=== PATIENT | female | born 1990 | race Caucasian/White ===

== ENCOUNTER 2018-09-25 12:33 | Emergency (ER) | payer OTHER ==
[~2018-09-25] VITALS: Ht 157.5 cm; Wt 113.4 kg
[2018-09-25] MEDS ORDERED: METF500 PO (12:49)
[2018-09-25] MEDS ORDERED: Verotin-Gr Cap1 EACH PO (12:50)
[2018-09-25] MEDS ORDERED: PROG100 PO (12:50)
[2018-09-25 13:42] LABS: Source, Urine Clean Catch
[2018-09-25 13:57] LABS: Bilirubin, Urine Neg (Neg); Blood, Urine Neg (Neg); Glucose Qualitative, Urine Neg (Neg); Ketones, Urine 3+ (Neg); Leukocyte Esterase, Urine 1+ (Neg); Nitrite, Urine Neg (Neg); Protein, Urine 2+ (Neg); Urobilinogen, Urine 1+ (Normal)
[2018-09-25 14:00] LABS: BASOPHILS ABSOLUTE AUTO 0.03 K/mm3 (0.00-0.23); BASOPHILS PERCENT AUTO 1 % (0-2); EOSINOPHILS ABSOLUTE AUTO 0.03 K/mm3 (0.00-0.68); EOSINOPHILS PERCENT AUTO 1 % (0-6); Hematocrit 40.3 % (33.0-51.0); Hemoglobin 13.6 g/dL (11.5-16.0); IMMATURE GRAN ABSOLUTE AUTO 0.02 K/mm3 (0.00-0.10); IMMATURE GRAN PERCENT AUTO 0 % (0-1); LYMPHOCYTES ABSOLUTE AUTO 1.34 K/mm3 (0.84-5.20); LYMPHOCYTES PERCENT AUTO 21 % (21-46); MONOCYTES ABSOLUTE AUTO 0.49 K/mm3 (0.16-1.47); MONOCYTES PERCENT AUTO 8 % (4-13); Mean Corpuscular HGB 30.4 pg (26.0-34.0); Mean Corpuscular HGB Conc 33.7 g/dL (31.5-36.5); Mean Corpuscular Volume 90 fL (80-100); Mean Platelet Volume 11.2 fL (9.1-12.4); NEUTROPHILS ABSOLUTE AUTO 4.39 K/mm3 (1.96-9.15); NEUTROPHILS PERCENT AUTO 70 % (41-73); Platelet Count 239 K/mm3 (150-400); RDW Coefficient Variation 13.2 % (11.7-14.2); RDW Standard Deviation 43.8 fL (35.1-46.3); Red Blood Cell Count 4.48 M/mm3 (3.80-5.20)
[2018-09-25 14:18] LABS: Alanine Aminotransfer (ALT/SGP 20 U/L (12-78); Albumin, Blood 4.2 g/dL (3.4-5.0); Albumin/Globulin Ratio 1.4 (0.8-1.8); Alk Phos 68 U/L (50-136); Anion Gap 7 mmol/L (6-16); Aspartate Aminotrans (AST/SGOT 11 U/L (12-37); Bilirubin, Total 1.6 mg/dL (0.1-1.0); Blood Urea Nitrogen 7 mg/dL (8-24); Bun/Creatinine Ratio 11.8 (12.0-20.0); CO2, Blood 24 mmol/L (21-32); Calcium, Blood 8.9 mg/dL (8.5-10.1); Chloride, Blood 108 mmol/L (98-108); Globulin, Blood 3.1 g/dL (2.2-4.0); Glomerular Filtration Rate >60 (60-); Glucose, Blood 87 mg/dL (70-99); Potassium, Blood 3.5 mmol/L (3.5-5.5); Sodium, Blood 139 mmol/L (136-145); Total Protein, Blood 7.3 g/dL (6.4-8.2)
[2018-09-25 14:27] LABS: Appearance, Urine Clear (Clear); Color, Urine Yellow (P-Yellow)
[2018-09-25 14:39] LABS: Bacteria Many /hpf; Red Blood Cells, Urine Rare /hpf (0-2); Squamous Epithelial Cells Many /hpf (Few); White Blood Cells, Urine 0-2 /hpf (0-5)
[2018-09-25 14:40] LABS: Mucus Light (0-Heavy)
[2018-09-25 15:08] LABS: Beta HCG, Quantitative, Serum 27703 mIU/mL (0-3)
== END 2018-09-25 16:00 | disposition home or self-care (01) ==
LOC: ER 12:33
PROVIDERS: Physician Assistant
DX: O26.91 Pregnancy related conditions, unspecified, first trimester (principal); R10.11 Right upper quadrant pain; Z91.013 Allergy to seafood; Z91.030 Bee allergy status; Z79.84 Long term (current) use of oral hypoglycemic drugs
CPT/HCPCS: 36415; 76705; 76801; 76817; 80053; 81001; 83690; 84702; 85025; 87086; 99284-25

== ENCOUNTER 2018-11-03 06:35 | Emergency (ER) | payer OTHER ==
[~2018-11-03] VITALS: Ht 160 cm; Wt 121.6 kg
[~2018-11-03 06:35] MED LIST: METF500 PO; PROG100 PO; Verotin-Gr Cap1 EACH PO
[2018-11-03 09:40] LABS: BASOPHILS ABSOLUTE AUTO 0.02 K/mm3 (0.00-0.23); BASOPHILS PERCENT AUTO 0 % (0-2); EOSINOPHILS ABSOLUTE AUTO 0.01 K/mm3 (0.00-0.68); EOSINOPHILS PERCENT AUTO 0 % (0-6); Hematocrit 41.9 % (33.0-51.0); Hemoglobin 14.1 g/dL (11.5-16.0); IMMATURE GRAN ABSOLUTE AUTO 0.01 K/mm3 (0.00-0.10); IMMATURE GRAN PERCENT AUTO 0 % (0-1); LYMPHOCYTES ABSOLUTE AUTO 0.99 K/mm3 (0.84-5.20); LYMPHOCYTES PERCENT AUTO 8 % (21-46); MONOCYTES ABSOLUTE AUTO 0.56 K/mm3 (0.16-1.47); MONOCYTES PERCENT AUTO 5 % (4-13); Mean Corpuscular HGB 30.5 pg (26.0-34.0); Mean Corpuscular HGB Conc 33.7 g/dL (31.5-36.5); Mean Corpuscular Volume 91 fL (80-100); NEUTROPHILS ABSOLUTE AUTO 10.51 K/mm3 (1.96-9.15); NEUTROPHILS PERCENT AUTO 87 % (41-73); Platelet Count 242 K/mm3 (150-400); RDW Standard Deviation 42.4 fL (35.1-46.3); Red Blood Cell Count 4.62 M/mm3 (3.80-5.20)
[2018-11-03 09:52] LABS: Alanine Aminotransfer (ALT/SGP 17 U/L (12-78); Albumin, Blood 3.9 g/dL (3.4-5.0); Albumin/Globulin Ratio 1.1 (0.8-1.8); Alk Phos 52 U/L (50-136); Anion Gap 8 mmol/L (6-16); Aspartate Aminotrans (AST/SGOT 12 U/L (12-37); Bilirubin, Total 1.6 mg/dL (0.1-1.0); Blood Urea Nitrogen 5 mg/dL (8-24); Bun/Creatinine Ratio 8.5 (12.0-20.0); CO2, Blood 24 mmol/L (21-32); Calcium, Blood 9.1 mg/dL (8.5-10.1); Chloride, Blood 105 mmol/L (98-108); Creatinine, Blood 0.59 mg/dL (0.40-1.00); Globulin, Blood 3.4 g/dL (2.2-4.0); Glomerular Filtration Rate >60 (60-); Glucose, Blood 107 mg/dL (70-99); Potassium, Blood 3.8 mmol/L (3.5-5.5); Sodium, Blood 137 mmol/L (136-145); Total Protein, Blood 7.3 g/dL (6.4-8.2)
[2018-11-03 10:33] LABS: Source, Urine Clean Catch
[2018-11-03 10:37] LABS: Bilirubin, Urine Neg (Neg); Blood, Urine 2+ (Neg); Glucose Qualitative, Urine Neg (Neg); Ketones, Urine 4+ (Neg); Leukocyte Esterase, Urine 1+ (Neg); Nitrite, Urine Neg (Neg); Protein, Urine 1+ (Neg); Specific Gravity, Urine 1.025 (1.003-1.022); Urobilinogen, Urine 1+ (Normal)
[2018-11-03 10:52] LABS: Appearance, Urine Cloudy (Clear); Color, Urine Yellow (P-Yellow)
[2018-11-03 10:54] LABS: Mucus Light ({null, 0-Heavy})
[2018-11-03 10:55] LABS: Bacteria Mod /hpf; Calcium Oxalate Crystals Few /hpf; Red Blood Cells, Urine 0-2 /hpf (0-2); Squamous Epithelial Cells Mod /hpf (Few); White Blood Cells, Urine 0-2 /hpf (0-5)
[2018-11-03] MEDS ORDERED: CEPH500 PO (11:00)
== END 2018-11-03 11:16 | disposition home or self-care (01) ==
LOC: ER 06:35
PROVIDERS: Physician Assistant
DX: O99.611 Diseases of the digestive system complicating pregnancy, first trimester (principal); K59.00 Constipation, unspecified; O99.281 Endocrine, nutritional and metabolic diseases complicating pregnancy, first trimester; E86.0 Dehydration; O21.9 Vomiting of pregnancy, unspecified; Z91.030 Bee allergy status; Z91.013 Allergy to seafood; Z79.899 Other long term (current) drug therapy; Z79.84 Long term (current) use of oral hypoglycemic drugs; Z3A.12 12 weeks gestation of pregnancy
CPT/HCPCS: 36415; 80053; 81001; 83690; 85025; 87077; 87086; 87186; 96374; 99283-25; J2405; J7120

== ENCOUNTER 2018-12-25 16:56 | Emergency (ER) | payer OTHER ==
[~2018-12-25] VITALS: Ht 157.5 cm; Wt 113.4 kg
[~2018-12-25 16:56] MED LIST changes: +CEPH500 PO
[2018-12-25 17:55] LABS: BASOPHILS ABSOLUTE AUTO 0.02 K/mm3 (0.00-0.23); BASOPHILS PERCENT AUTO 0 % (0-2); EOSINOPHILS ABSOLUTE AUTO 0.03 K/mm3 (0.00-0.68); EOSINOPHILS PERCENT AUTO 0 % (0-6); Hematocrit 39.7 % (33.0-51.0); Hemoglobin 13.5 g/dL (11.5-16.0); IMMATURE GRAN ABSOLUTE AUTO 0.05 K/mm3 (0.00-0.10); IMMATURE GRAN PERCENT AUTO 0 % (0-1); LYMPHOCYTES ABSOLUTE AUTO 1.13 K/mm3 (0.84-5.20); LYMPHOCYTES PERCENT AUTO 10 % (21-46); MONOCYTES PERCENT AUTO 5 % (4-13); Mean Corpuscular HGB 30.7 pg (26.0-34.0); Mean Corpuscular Volume 90 fL (80-100); Mean Platelet Volume 11.7 fL (9.1-12.4); NEUTROPHILS ABSOLUTE AUTO 9.51 K/mm3 (1.96-9.15); NEUTROPHILS PERCENT AUTO 84 % (41-73); Platelet Count 269 K/mm3 (150-400); RDW Coefficient Variation 13.1 % (11.7-14.2); RDW Standard Deviation 43.1 fL (35.1-46.3); White Blood Cell Count 11.34 K/mm3 (4.00-11.30)
[2018-12-25 18:15] LABS: Alanine Aminotransfer (ALT/SGP 24 U/L (12-78); Albumin, Blood 3.8 g/dL (3.4-5.0); Alk Phos 63 U/L (50-136); Anion Gap 11 mmol/L (6-16); Aspartate Aminotrans (AST/SGOT 22 U/L (12-37); Bilirubin, Total 0.7 mg/dL (0.1-1.0); Blood Urea Nitrogen 3 mg/dL (8-24); Bun/Creatinine Ratio 7.3 (12.0-20.0); CO2, Blood 23 mmol/L (21-32); Calcium, Blood 9.7 mg/dL (8.5-10.1); Chloride, Blood 103 mmol/L (98-108); Creatinine, Blood 0.41 mg/dL (0.40-1.00); Glomerular Filtration Rate >60 (60-); Glucose, Blood 102 mg/dL (70-99); Potassium, Blood 2.9 mmol/L (3.5-5.5); Sodium, Blood 137 mmol/L (136-145); Total Protein, Blood 7.8 g/dL (6.4-8.2)
[2018-12-25 18:37] LABS: Beta HCG, Quantitative, Serum 34839 mIU/mL (0-3)
[2018-12-25] MEDS ORDERED: AMOX250 PO (20:43)
[2018-12-25] MEDS ORDERED: FAMO8SU PO (22:08)
== END 2018-12-25 22:15 | disposition home or self-care (01) ==
LOC: ER 16:56
PROVIDERS: Physician Assistant
DX: O99.612 Diseases of the digestive system complicating pregnancy, second trimester (principal); K21.9 Gastro-esophageal reflux disease without esophagitis; O99.282 Endocrine, nutritional and metabolic diseases complicating pregnancy, second trimester; E87.6 Hypokalemia; Z91.030 Bee allergy status; Z91.013 Allergy to seafood; Z91.048 Other nonmedicinal substance allergy status; Z79.84 Long term (current) use of oral hypoglycemic drugs; Z79.899 Other long term (current) drug therapy; Z3A.18 18 weeks gestation of pregnancy
CPT/HCPCS: 36415; 80053; 83690; 84702; 85025; 96361; 96374; 99284-25; J2405; J7030

== ENCOUNTER → 2019-03-01 | Outpatient (CLI) | payer OTHER ==
[~2019-03-01] MED LIST changes: +AMOX250 PO; +FAMO8SU PO
[2019-03-01 13:36] LABS: Hematocrit 36.5 % (33.0-51.0); Hemoglobin 12.2 g/dL (11.5-16.0)
== END | disposition home or self-care (01) ==
LOC: LAB 09:29 → LAB SHORT 09:29
PROVIDERS: Obstetrics & Gynecology
DX: Z33.1 Pregnant state, incidental (principal)
CPT/HCPCS: 82950; 85014; 85018

== ENCOUNTER 2019-03-26 17:40 | Observation (INO) | payer OTHER ==
[~2019-03-26] VITALS: Ht 157.5 cm; Wt 109.1 kg
[2019-03-26 18:39] LABS: BASOPHILS ABSOLUTE AUTO 0.03 K/mm3 (0.00-0.23); BASOPHILS PERCENT AUTO 1 % (0-2); EOSINOPHILS ABSOLUTE AUTO 0.03 K/mm3 (0.00-0.68); EOSINOPHILS PERCENT AUTO 1 % (0-6); Hematocrit 37.1 % (33.0-51.0); IMMATURE GRAN ABSOLUTE AUTO 0.05 K/mm3 (0.00-0.10); IMMATURE GRAN PERCENT AUTO 1 % (0-1); LYMPHOCYTES ABSOLUTE AUTO 0.65 K/mm3 (0.84-5.20); LYMPHOCYTES PERCENT AUTO 11 % (21-46); MONOCYTES PERCENT AUTO 8 % (4-13); Mean Corpuscular Volume 89 fL (80-100); Mean Platelet Volume 12.1 fL (9.1-12.4); NEUTROPHILS ABSOLUTE AUTO 4.82 K/mm3 (1.96-9.15); NEUTROPHILS PERCENT AUTO 79 % (41-73); Platelet Count 213 K/mm3 (150-400); RDW Coefficient Variation 13.4 % (11.7-14.2); RDW Standard Deviation 43.2 fL (35.1-46.3); Red Blood Cell Count 4.19 M/mm3 (3.80-5.20); White Blood Cell Count 6.08 K/mm3 (4.00-11.30)
--- NOTE | 2019-03-26 19:17 | NUR ---
HERE WITH SEVERE HEARTBURN AND VOMITING. IV STARTED. MEDICATED WITH PHENERGAN AND PEPSID. AWAITING LABS
[2019-03-26 19:18] LABS: Alanine Aminotransfer (ALT/SGP 20 U/L (12-78); Albumin, Blood 2.2 g/dL (3.4-5.0); Albumin/Globulin Ratio 0.6 (0.8-1.8); Alk Phos 101 U/L (50-136); Anion Gap 12 mmol/L (6-16); Aspartate Aminotrans (AST/SGOT 44 U/L (12-37); Bilirubin, Total 0.7 mg/dL (0.1-1.0); Blood Urea Nitrogen 1 mg/dL (8-24); Bun/Creatinine Ratio 2.2 (12.0-20.0); CO2, Blood 21 mmol/L (21-32); Calcium, Blood 8.5 mg/dL (8.5-10.1); Chloride, Blood 101 mmol/L (98-108); Creatinine, Blood 0.47 mg/dL (0.40-1.00); Globulin, Blood 3.9 g/dL (2.2-4.0); Glomerular Filtration Rate >60 (60-); Glucose, Blood 107 mg/dL (70-99); Potassium, Blood 2.4 mmol/L (3.5-5.5); Sodium, Blood 134 mmol/L (136-145); Total Protein, Blood 6.1 g/dL (6.4-8.2)
[2019-03-27 04:22] LABS: Source, Urine Clean Catch
[2019-03-27 04:27] LABS: Appearance, Urine Clear (Clear); Bilirubin, Urine Neg (Neg); Blood, Urine Neg (Neg); Color, Urine Amber (P-Yellow); Glucose Qualitative, Urine Neg (Neg); Ketones, Urine 4+ (Neg); Leukocyte Esterase, Urine 1+ (Neg); Nitrite, Urine Neg (Neg); Protein, Urine 2+ (Neg); Specific Gravity, Urine 1.015 (1.003-1.022); Urobilinogen, Urine 1+ (Normal); pH, Urine 6.5 (5.0-8.0)
[2019-03-27 04:34] LABS: Bacteria Many /hpf; Mucus Heavy (0-Heavy); Squamous Epithelial Cells Mod /hpf (Few)
[2019-03-27 05:55] LABS: Alanine Aminotransfer (ALT/SGP 19 U/L (12-78); Albumin/Globulin Ratio 0.6 (0.8-1.8); Alk Phos 89 U/L (50-136); Anion Gap 13 mmol/L (6-16); Aspartate Aminotrans (AST/SGOT 40 U/L (12-37); Bilirubin, Total 0.7 mg/dL (0.1-1.0); Blood Urea Nitrogen <1 mg/dL (8-24); Bun/Creatinine Ratio Unable to Calculate (12.0-20.0); CO2, Blood 19 mmol/L (21-32); Calcium, Blood 8.2 mg/dL (8.5-10.1); Chloride, Blood 106 mmol/L (98-108); Creatinine, Blood 0.39 mg/dL (0.40-1.00); Globulin, Blood 3.4 g/dL (2.2-4.0); Glomerular Filtration Rate >60 (60-); Glucose, Blood 104 mg/dL (70-99); Potassium, Blood 2.6 mmol/L (3.5-5.5); Sodium, Blood 138 mmol/L (136-145); Total Protein, Blood 5.4 g/dL (6.4-8.2)
--- NOTE | 2019-03-27 08:38 | NUR ---
STATES LAST VOMIT AT 0715
--- NOTE | 2019-03-27 08:52 | NUR ---
[address] VENTURA BECAUSE ORIGINAL ORDER OF K+ WAS TO HIGH TO RUN TOGETHER, NOW WE ARE DOING K+ 40 meq over 4 hours then BMP THEN CONTINUE NORMAL SALINE WITH 40 meq AT 250CC/HR ACCORDING TO LAB RESULTS
--- NOTE | 2019-03-27 12:12 | NUR ---
nausea medication patient states she is ok for now
[2019-03-27 13:34] LABS: Anion Gap 11 mmol/L (6-16); Blood Urea Nitrogen 1 mg/dL (8-24); Bun/Creatinine Ratio 2.4 (12.0-20.0); CO2, Blood 20 mmol/L (21-32); Chloride, Blood 106 mmol/L (98-108); Creatinine, Blood 0.42 mg/dL (0.40-1.00); Glomerular Filtration Rate >60 (60-); Glucose, Blood 83 mg/dL (70-99); Potassium, Blood 2.8 mmol/L (3.5-5.5); Sodium, Blood 137 mmol/L (136-145)
--- NOTE | 2019-03-27 15:25 | NUR ---
RESTING NO VOMITING SINCE 729 STILL NAUSEA
[2019-03-27 18:46] LABS: Anion Gap 11 mmol/L (6-16); Blood Urea Nitrogen <1 mg/dL (8-24); Bun/Creatinine Ratio Unable to Calculate (12.0-20.0); CO2, Blood 20 mmol/L (21-32); Chloride, Blood 108 mmol/L (98-108); Creatinine, Blood 0.46 mg/dL (0.40-1.00); Glomerular Filtration Rate >60 (60-); Glucose, Blood 81 mg/dL (70-99); Potassium, Blood 2.9 mmol/L (3.5-5.5); Sodium, Blood 139 mmol/L (136-145)
[2019-03-28 06:11] LABS: Anion Gap 9 mmol/L (6-16); Blood Urea Nitrogen <1 mg/dL (8-24); Bun/Creatinine Ratio Unable to Calculate (12.0-20.0); CO2, Blood 22 mmol/L (21-32); Chloride, Blood 110 mmol/L (98-108); Creatinine, Blood 0.37 mg/dL (0.40-1.00); Glomerular Filtration Rate >60 (60-); Glucose, Blood 91 mg/dL (70-99); Potassium, Blood 2.9 mmol/L (3.5-5.5); Sodium, Blood 141 mmol/L (136-145)
--- NOTE | 2019-03-28 11:38 | NUR ---
PER PT FEELING MUCH BETTER - NO NAUSEA DENIES NEED FOR ANY MEDS AT THIS TIME. VISITORS AT SIDE
--- NOTE | 2019-03-28 14:30 | NUR ---
IV OFF PUMP KEEPS ALARMING - HOLDING IVF UNTIL TALK TO DR VENTURA
--- NOTE | 2019-03-28 14:31 | NUR ---
LAB CALLED AND REMINDED LAB DRAW ORDERED TO BE DRAWN AT 1400 - THEY ARE SENDING SOMEONE
[2019-03-28 15:09] LABS: Anion Gap 9 mmol/L (6-16); Blood Urea Nitrogen <1 mg/dL (8-24); Bun/Creatinine Ratio Unable to Calculate (12.0-20.0); CO2, Blood 19 mmol/L (21-32); Calcium, Blood 8.2 mg/dL (8.5-10.1); Chloride, Blood 110 mmol/L (98-108); Creatinine, Blood 0.36 mg/dL (0.40-1.00); Glomerular Filtration Rate >60 (60-); Glucose, Blood 126 mg/dL (70-99); Potassium, Blood 3.3 mmol/L (3.5-5.5); Sodium, Blood 138 mmol/L (136-145)
== END 2019-03-28 16:45 | disposition home or self-care (01) ==
LOC: OBS 17:40 → BC 17:40 → OBS 22:09 → BC 22:10
PROVIDERS: Advanced Practice Midwife; ADMIT Obstetrics & Gynecology
DX: O26.893 Other specified pregnancy related conditions, third trimester (principal); O99.283 Endocrine, nutritional and metabolic diseases complicating pregnancy, third trimester; O99.213 Obesity complicating pregnancy, third trimester; R11.2 Nausea with vomiting, unspecified; E87.6 Hypokalemia; E66.9 Obesity, unspecified; E28.2 Polycystic ovarian syndrome; Z3A.31 31 weeks gestation of pregnancy; Z79.84 Long term (current) use of oral hypoglycemic drugs; Z79.899 Other long term (current) drug therapy; Z91.030 Bee allergy status; Z91.013 Allergy to seafood; Z91.048 Other nonmedicinal substance allergy status
CPT/HCPCS: 36415; 59025; 80048; 80053; 81001; 85025; 87086; 96365; 96366; 96372; 96375; 96376; C9113; G0378; J2405; J2550; J2765; J3480; J7040; J7120; Q0163

== ENCOUNTER 2019-04-08 14:16 | Inpatient (IN) | payer OTHER ==
[~2019-04-08] VITALS: Ht 157.5 cm; Wt 109.8 kg
--- NOTE | 2019-04-08 15:36 | NUR ---
1515 PATIENTS MOTHER SPOKE TO ME STATING, " I WILL SPEAK FOR IGGY". SHE IS DONE WITH THIS AND THE VOMITING, WE WANT THE BABY DELIVERED NOW". I SPOKE WITH THE PATIENT AND HER MOTHER, I EXPLAINED THAT WE DON'T DELIVERY BABIES HERE AT THIS GESTATION AND TYPICALLY [facility] DOESN'T ACCEPT PATIENTS UNLESS THERE IS A MEDICAL REASON. PATIENTS MOTHER AGAIN STATED THAT IGGY, "WANTS TO END THE ". I ASKED IGGY IF THAT MENT SHE WAS THINKING ABOUT HURTING HERSELF OR THE BABY IN ORDER TO STOP BEING AND THE PATIENT SAID "NO".
[2019-04-08 16:03] LABS: Anion Gap 15 mmol/L (6-16); Blood Urea Nitrogen <1 mg/dL (8-24); Bun/Creatinine Ratio Unable to Calculate (12.0-20.0); CO2, Blood 17 mmol/L (21-32); Calcium, Blood 8.9 mg/dL (8.5-10.1); Chloride, Blood 103 mmol/L (98-108); Creatinine, Blood 0.41 mg/dL (0.40-1.00); Glomerular Filtration Rate >60 (60-); Glucose, Blood 104 mg/dL (70-99); Potassium, Blood 2.9 mmol/L (3.5-5.5); Sodium, Blood 135 mmol/L (136-145)
[2019-04-09 06:16] LABS: Anion Gap 12 mmol/L (6-16); Blood Urea Nitrogen <1 mg/dL (8-24); Bun/Creatinine Ratio Unable to Calculate (12.0-20.0); CO2, Blood 17 mmol/L (21-32); Calcium, Blood 7.9 mg/dL (8.5-10.1); Chloride, Blood 112 mmol/L (98-108); Creatinine, Blood 0.41 mg/dL (0.40-1.00); Glomerular Filtration Rate >60 (60-); Glucose, Blood 83 mg/dL (70-99); Potassium, Blood 3.2 mmol/L (3.5-5.5); Sodium, Blood 141 mmol/L (136-145)
--- NOTE | 2019-04-09 08:45 | NUR ---
0715 ASSUMED CARE ASSUMED CARE OF PATIENT SLEEPING QUIETLY. PATIENT'S MOTHER AT BEDSIDE. MOTHER REPORTS PATIENT HAS BEEN ABLE TO GET SOME REST DURING THE NIGHT. MOTHER WILL HAVE PATIENT CALL WHEN SHE IS AWAKE FOR VITAL SIGNS AND MONITORING
--- NOTE | 2019-04-09 09:26 | NUR ---
DR AUDREY VENTURA IN TO SEE PATIENT. PLAN OF CARE DISCUSSED WITH PATIENT AND HER MOTHER
--- NOTE | 2019-04-09 12:19 | NUR ---
PATIENT HAS BEEN SLEEPING WHEN I HAVE CHECKED ON HER. SHE AROUSES TO TOUCH AND FOLLOWS COMMANDS, THEN RETRUNS TO SLEEP. PATIENT'S MOTHER HAS BEEN CONTINOUSLY AT BEDSIDE, THE MOTHER STATES SHE HAS BEEN RESTING AND IT IS GOOD TO SEE HER GET SOME MUCH NEEDED SLEEP
[2019-04-10 05:52] LABS: Anion Gap 16 mmol/L (6-16); Blood Urea Nitrogen <1 mg/dL (8-24); Bun/Creatinine Ratio Unable to Calculate (12.0-20.0); CO2, Blood 16 mmol/L (21-32); Calcium, Blood 8.5 mg/dL (8.5-10.1); Chloride, Blood 106 mmol/L (98-108); Creatinine, Blood 0.38 mg/dL (0.40-1.00); Glomerular Filtration Rate >60 (60-); Glucose, Blood 146 mg/dL (70-99); Potassium, Blood 2.9 mmol/L (3.5-5.5); Sodium, Blood 138 mmol/L (136-145)
--- NOTE | 2019-04-10 17:15 | NUR ---
pt has rested most of the day. has voided dark yellow urine twice this shift. She has eaten 10-20% of her meal trays. Small amount of emesisi following lunch. She has continued with complaint of nausea t/o the day, numerous offers of antiemetics given. Medicated with compazine once per request. Phenergan, MOM, mucinex offered but denied by pt
[2019-04-11 06:06] LABS: Anion Gap 16 mmol/L (6-16); Blood Urea Nitrogen <1 mg/dL (8-24); Bun/Creatinine Ratio Unable to Calculate (12.0-20.0); CO2, Blood 13 mmol/L (21-32); Calcium, Blood 8.4 mg/dL (8.5-10.1); Chloride, Blood 107 mmol/L (98-108); Creatinine, Blood 0.37 mg/dL (0.40-1.00); Glomerular Filtration Rate >60 (60-); Glucose, Blood 161 mg/dL (70-99); Potassium, Blood 3.3 mmol/L (3.5-5.5); Sodium, Blood 136 mmol/L (136-145)
--- NOTE | 2019-04-11 17:00 | NUR ---
PT ATE HALF HER DINNER AND DRANK 2 MILKS PT STATES THIS IS THE BEST I HAVE FELT IN A LONG TIME. PT REQUESTING TO BE DCD HOME DR AUDREY PULIDO
[2019-04-11] MEDS ORDERED: ONDA4ODT MM (17:38)
[2019-04-11] MEDS ORDERED: POTCHL20ER PO (17:38)
[2019-04-11] MEDS ORDERED: PROC5 PO (17:39)
[2019-04-11] MEDS ORDERED: OMEPRAZOLE20 MG PO (17:39)
== END 2019-04-11 17:50 | disposition home or self-care (01) | DRG 833 ==
LOC: OBS 14:16 → BC 14:17 → OBS 17:42 → BC 17:44
PROVIDERS: Advanced Practice Midwife; ADMIT Obstetrics & Gynecology
DX: O21.0 Mild hyperemesis gravidarum (principal); O99.283 Endocrine, nutritional and metabolic diseases complicating pregnancy, third trimester; E87.6 Hypokalemia; Z3A.34 34 weeks gestation of pregnancy
CPT/HCPCS: 36415; 59025; 80048; 96361; 96365; 96366; 96375; 96376; C9113; G0378; J0780; J1720; J2405; J2550; J3480; J7030; J7120

== ENCOUNTER 2019-04-13 18:30 | Observation (INO) | payer OTHER ==
[~2019-04-13] VITALS: Ht 157.5 cm; Wt 109.5 kg
[~2019-04-13 18:30] MED LIST changes: +OMEPRAZOLE20 MG PO; +ONDA4ODT MM; +POTCHL20ER PO; +PROC5 PO
--- NOTE | 2019-04-13 19:19 | NUR ---
Pt here w/complaints of back adn head aches and abdominal pressure that began today. Pt has significant history of n/v, and has been inpatient this . Reports is currently taking compazine, zofran and omperazole at home. Reports she is able to keep down compazine but rarely zofran. Reports has had solid bm today and fewer episodes of vomitting than normal. Has had 2 hospital cups of water but very little food. RN unable to auscultate bowel tones but pt reports positive flatulance today. CNM notified, will give LR and zofran and draw labs.
[2019-04-13 19:37] LABS: Source, Urine Clean Catch
[2019-04-13 19:45] LABS: Bilirubin, Urine Neg (Neg); Blood, Urine Neg (Neg); Glucose Qualitative, Urine Neg (Neg); Ketones, Urine Neg (Neg); Leukocyte Esterase, Urine Neg (Neg); Nitrite, Urine Neg (Neg); Protein, Urine Neg (Neg); Urobilinogen, Urine NORM (Normal)
[2019-04-13 19:46] LABS: Appearance, Urine Clear (Clear); Color, Urine Yellow (P-Yellow)
[2019-04-13 19:53] LABS: BASOPHILS ABSOLUTE AUTO 0.04 K/mm3 (0.00-0.23); BASOPHILS PERCENT AUTO 1 % (0-2); EOSINOPHILS ABSOLUTE AUTO 0.11 K/mm3 (0.00-0.68); EOSINOPHILS PERCENT AUTO 1 % (0-6); Hematocrit 35.2 % (33.0-51.0); Hemoglobin 11.7 g/dL (11.5-16.0); IMMATURE GRAN PERCENT AUTO 5 % (0-1); LYMPHOCYTES ABSOLUTE AUTO 1.67 K/mm3 (0.84-5.20); LYMPHOCYTES PERCENT AUTO 20 % (21-46); MONOCYTES ABSOLUTE AUTO 0.58 K/mm3 (0.16-1.47); MONOCYTES PERCENT AUTO 7 % (4-13); Mean Corpuscular HGB 30.3 pg (26.0-34.0); Mean Corpuscular HGB Conc 33.2 g/dL (31.5-36.5); Mean Corpuscular Volume 91 fL (80-100); NEUTROPHILS ABSOLUTE AUTO 5.61 K/mm3 (1.96-9.15); NEUTROPHILS PERCENT AUTO 67 % (41-73); NRBC ABSOLUTE 0.05 K/mm3 (0.00-0.02); NRBC Auto 0.6 /100 WBC (0.0-0.2); Platelet Count 231 K/mm3 (150-400); RDW Coefficient Variation 13.8 % (11.7-14.2); RDW Standard Deviation 46.4 fL (35.1-46.3); Red Blood Cell Count 3.86 M/mm3 (3.80-5.20); White Blood Cell Count 8.41 K/mm3 (4.00-11.30)
[2019-04-13 20:21] LABS: Alanine Aminotransfer (ALT/SGP 40 U/L (12-78); Albumin/Globulin Ratio 0.6 (0.8-1.8); Alk Phos 131 U/L (50-136); Anion Gap 13 mmol/L (6-16); Aspartate Aminotrans (AST/SGOT 65 U/L (12-37); Bilirubin, Total 0.9 mg/dL (0.1-1.0); Blood Urea Nitrogen <1 mg/dL (8-24); Bun/Creatinine Ratio Unable to Calculate (12.0-20.0); CO2, Blood 20 mmol/L (21-32); Calcium, Blood 8.5 mg/dL (8.5-10.1); Chloride, Blood 104 mmol/L (98-108); Creatinine, Blood 0.43 mg/dL (0.40-1.00); Globulin, Blood 3.5 g/dL (2.2-4.0); Glomerular Filtration Rate >60 (60-); Glucose, Blood 130 mg/dL (70-99); Potassium, Blood 2.6 mmol/L (3.5-5.5); Sodium, Blood 137 mmol/L (136-145); Total Protein, Blood 5.5 g/dL (6.4-8.2)
[2019-04-14 05:47] LABS: Alanine Aminotransfer (ALT/SGP 36 U/L (12-78); Albumin, Blood 1.9 g/dL (3.4-5.0); Albumin/Globulin Ratio 0.6 (0.8-1.8); Alk Phos 127 U/L (50-136); Anion Gap 11 mmol/L (6-16); Aspartate Aminotrans (AST/SGOT 53 U/L (12-37); Blood Urea Nitrogen <1 mg/dL (8-24); Bun/Creatinine Ratio Unable to Calculate (12.0-20.0); CO2, Blood 21 mmol/L (21-32); Calcium, Blood 8.4 mg/dL (8.5-10.1); Chloride, Blood 107 mmol/L (98-108); Creatinine, Blood 0.38 mg/dL (0.40-1.00); Globulin, Blood 3.3 g/dL (2.2-4.0); Glomerular Filtration Rate >60 (60-); Glucose, Blood 115 mg/dL (70-99); Potassium, Blood 2.9 mmol/L (3.5-5.5); Sodium, Blood 139 mmol/L (136-145); Total Protein, Blood 5.2 g/dL (6.4-8.2)
--- NOTE | 2019-04-14 06:42 | NUR ---
PT CONTINUED TO HAVE NAUSEA AND VOMITTING T/O THE SHIFT. STATES THAT NOTHING HELP AND DENIED ANY NEED FOR INTERVENTION.
--- NOTE | 2019-04-14 08:07 | NUR ---
VOMITING NUMEROUS TIMES SPUTUM AND SMALL AMOUNT CLEAR BILE FLUID
--- NOTE | 2019-04-14 10:33 | NUR ---
REPORT TO JESSICA RACHEL
--- NOTE | 2019-04-14 14:14 | NUR ---
POWERGLIDE PLACEMENT BY BLANK MATT RN. POTASSIUM CHLORIDE INFUSION RESTARTED. PT RATED HER SYMPTOMS 10/10 BEFORE ATIVAN 0.25MG GIVEN, SHE NOW SAYS HER SYMPTOMS ARE 7/10 AND ALSO FEELS SOME IMPROVEMENT FROM THE PROTONIX. WHILE IN THE PATIENT'S ROOM I NOTICED SHE WAS HICCUPING FREQUENTLY AND THAT THE HICCUPS WOULD THEN CAUSE HER TO COUGH UP ACID AND SPIT. SHE SAYS THE HICCUPS POTENTIATE THE THICK ACID LEADING TO VOMITING. I CALLED HARINDER DICKINSON TO GIVE HER AN UPDATE ON THE EFFECTIVENESS OF THE ATIVAN AND PROTONIX AND TO SUGGEST THE ADDITION OF BACLOFEN 5-20MG TID FOR THE HICCUPS. HARINDER MARIE, WILL DO FURTHER RESEARCH ON BACLOFEN AND PROTONIX.
--- NOTE | 2019-04-14 14:33 | NUR ---
pt sitting up asking for apple juice
--- NOTE | 2019-04-14 15:20 | NUR ---
T.O. NO NEED FOR TELEMETRY WHILE INFUSING THE POTASSIUM PER HARINDER DICKINSON
[2019-04-14 19:24] LABS: Alanine Aminotransfer (ALT/SGP 32 U/L (12-78); Albumin, Blood 1.9 g/dL (3.4-5.0); Albumin/Globulin Ratio 0.6 (0.8-1.8); Alk Phos 130 U/L (50-136); Anion Gap 10 mmol/L (6-16); Aspartate Aminotrans (AST/SGOT 46 U/L (12-37); Bilirubin, Total 0.9 mg/dL (0.1-1.0); Blood Urea Nitrogen <1 mg/dL (8-24); Bun/Creatinine Ratio Unable to Calculate (12.0-20.0); CO2, Blood 22 mmol/L (21-32); Calcium, Blood 8.1 mg/dL (8.5-10.1); Chloride, Blood 104 mmol/L (98-108); Creatinine, Blood 0.43 mg/dL (0.40-1.00); Globulin, Blood 3.4 g/dL (2.2-4.0); Glomerular Filtration Rate >60 (60-); Glucose, Blood 110 mg/dL (70-99); Potassium, Blood 3.1 mmol/L (3.5-5.5); Sodium, Blood 136 mmol/L (136-145); Total Protein, Blood 5.3 g/dL (6.4-8.2)
--- NOTE | 2019-04-15 07:22 | NUR ---
PT SLEEPING SOUNDLY, DOES NO AWAKE WITH RN ENTRANCE TO ROOM. PT MOM IN ROOM, STATES SHE FELL ASLEEP AFTER ATIVAN. WILL CALL WHEN PT AWAKES FOR LAB DRAW.
[2019-04-15 09:41] LABS: Alanine Aminotransfer (ALT/SGP 33 U/L (12-78); Albumin, Blood 1.7 g/dL (3.4-5.0); Albumin/Globulin Ratio 0.6 (0.8-1.8); Alk Phos 118 U/L (50-136); Anion Gap 9 mmol/L (6-16); Aspartate Aminotrans (AST/SGOT 40 U/L (12-37); Bilirubin, Total 0.8 mg/dL (0.1-1.0); Blood Urea Nitrogen <1 mg/dL (8-24); Bun/Creatinine Ratio Unable to Calculate (12.0-20.0); CO2, Blood 23 mmol/L (21-32); Chloride, Blood 107 mmol/L (98-108); Creatinine, Blood 0.39 mg/dL (0.40-1.00); Globulin, Blood 2.9 g/dL (2.2-4.0); Glomerular Filtration Rate >60 (60-); Glucose, Blood 91 mg/dL (70-99); Potassium, Blood 3.1 mmol/L (3.5-5.5); Sodium, Blood 139 mmol/L (136-145); Total Protein, Blood 4.6 g/dL (6.4-8.2)
--- NOTE | 2019-04-15 10:27 | NUR ---
PT STATES SHE TOOK A FEW BITES OF BREAKFAST, YOGURT BOWL AND CREAM OF WHEAT, AND MOST STAYED DOWN. DECLINES NST AT THIS TIME
--- NOTE | 2019-04-15 11:29 | NUR ---
PT SLEEPING SOUNDLY
--- NOTE | 2019-04-15 15:35 | NUR ---
PT WAS ABLE TO EAT SOME OF HER LUNCH. FEELING BETTER AND THINKING SHE WOULD LIKE TO GO HOME.
--- NOTE | 2019-04-15 15:38 | NUR ---
DR VENTURA AT BEDSIDE DISCUSSING PLAN OF CARE
--- NOTE | 2019-04-15 17:43 | NUR ---
PT DESIRES TO GO HOME. DISCHARGE INSTRUCTIONS REVIEWED AND SIGNED. ALL QUESTIONS ANSWERED. PT DISCHARGED TO HOME
== END 2019-04-15 17:44 | disposition home or self-care (01) ==
LOC: OBS 18:30 → BC 18:30 → OBS 20:58 → BC 20:59
PROVIDERS: Obstetrics & Gynecology; ADMIT Registered Nurse Community Health
DX: O21.0 Mild hyperemesis gravidarum (principal); O99.283 Endocrine, nutritional and metabolic diseases complicating pregnancy, third trimester; O99.213 Obesity complicating pregnancy, third trimester; O99.89 Other specified diseases and conditions complicating pregnancy, childbirth and the puerperium; M54.9 Dorsalgia, unspecified; E28.2 Polycystic ovarian syndrome; E87.6 Hypokalemia; E66.9 Obesity, unspecified; Z3A.34 34 weeks gestation of pregnancy; Z91.013 Allergy to seafood; Z91.038 Other insect allergy status; Z91.048 Other nonmedicinal substance allergy status; Z79.899 Other long term (current) drug therapy
CPT/HCPCS: 36415; 59025; 80053; 81003; 83036; 85025; 96361; 96365; 96366; 96375; 96376; C1751; C9113; G0378; J0780; J2060; J2405; J3480; J7030; J7120

== ENCOUNTER 2019-04-22 00:06 | Day surgery (SDC) | payer OTHER | END 2019-04-22 18:35 | disposition home or self-care (01) | LOC: ATC 00:06 | DX: O21.0 Mild hyperemesis gravidarum (principal); O99.280 Endocrine, nutritional and metabolic diseases complicating pregnancy, unspecified trimester; E28.2 Polycystic ovarian syndrome; Z79.899 Other long term (current) drug therapy; Z91.013 Allergy to seafood; Z91.030 Bee allergy status; Z91.048 Other nonmedicinal substance allergy status | CPT/HCPCS: 96361; 96374; J2405; J7120 ==

== ENCOUNTER 2019-04-25 10:30 | Observation (INO) | payer OTHER ==
[~2019-04-25] VITALS: Ht 157.5 cm; Wt 98.1 kg
[~2019-04-25 10:30] MED LIST changes: -IBUP800 PO; -LORA.5 PO; -PERCOCET; -Percocet 5-3251 EACH PO
[2019-04-25 11:56] LABS: Alanine Aminotransfer (ALT/SGP 38 U/L (12-78); Albumin/Globulin Ratio 0.5 (0.8-1.8); Alk Phos 191 U/L (50-136); Anion Gap 17 mmol/L (6-16); Aspartate Aminotrans (AST/SGOT 64 U/L (12-37); Bilirubin, Total 0.9 mg/dL (0.1-1.0); Blood Urea Nitrogen <1 mg/dL (8-24); Bun/Creatinine Ratio Unable to Calculate (12.0-20.0); CO2, Blood 14 mmol/L (21-32); Calcium, Blood 8.7 mg/dL (8.5-10.1); Chloride, Blood 103 mmol/L (98-108); Creatinine, Blood 0.49 mg/dL (0.40-1.00); Globulin, Blood 3.8 g/dL (2.2-4.0); Glomerular Filtration Rate >60 (60-); Glucose, Blood 142 mg/dL (70-99); Potassium, Blood 2.6 mmol/L (3.5-5.5); Sodium, Blood 134 mmol/L (136-145); Total Protein, Blood 5.8 g/dL (6.4-8.2)
[2019-04-25 12:50] LABS: BASOPHILS ABSOLUTE AUTO 0.03 K/mm3 (0.00-0.23); BASOPHILS PERCENT AUTO 0 % (0-2); EOSINOPHILS ABSOLUTE AUTO 0.05 K/mm3 (0.00-0.68); EOSINOPHILS PERCENT AUTO 1 % (0-6); Hematocrit 37.8 % (33.0-51.0); Hemoglobin 13.1 g/dL (11.5-16.0); IMMATURE GRAN ABSOLUTE AUTO 0.09 K/mm3 (0.00-0.10); IMMATURE GRAN PERCENT AUTO 1 % (0-1); LYMPHOCYTES ABSOLUTE AUTO 1.41 K/mm3 (0.84-5.20); LYMPHOCYTES PERCENT AUTO 21 % (21-46); MONOCYTES ABSOLUTE AUTO 0.63 K/mm3 (0.16-1.47); MONOCYTES PERCENT AUTO 9 % (4-13); Mean Corpuscular HGB 30.1 pg (26.0-34.0); Mean Corpuscular HGB Conc 34.7 g/dL (31.5-36.5); Mean Platelet Volume 11.8 fL (9.1-12.4); NEUTROPHILS ABSOLUTE AUTO 4.64 K/mm3 (1.96-9.15); NEUTROPHILS PERCENT AUTO 68 % (41-73); NRBC ABSOLUTE 0.04 K/mm3 (0.00-0.02); NRBC Auto 0.6 /100 WBC (0.0-0.2); Platelet Count 161 K/mm3 (150-400); RDW Standard Deviation 44.4 fL (35.1-46.3); Red Blood Cell Count 4.35 M/mm3 (3.80-5.20); White Blood Cell Count 6.85 K/mm3 (4.00-11.30)
[2019-04-25 12:51] LABS: Mean Corpuscular Volume 87 fL (80-100)
[2019-04-25 14:46] LABS: Protein, Urine Random 97.8 mg/dL (0.0-11.9); Protein/Creat Ratio, Ur Random 0.6
--- NOTE | 2019-04-25 16:42 | NUR ---
PICC LINE PLACED APPROX 7 DAYS AGO
[2019-04-26 06:36] LABS: BASOPHILS ABSOLUTE AUTO 0.03 K/mm3 (0.00-0.23); BASOPHILS PERCENT AUTO 1 % (0-2); EOSINOPHILS ABSOLUTE AUTO 0.11 K/mm3 (0.00-0.68); EOSINOPHILS PERCENT AUTO 2 % (0-6); Hematocrit 35.9 % (33.0-51.0); Hemoglobin 12.5 g/dL (11.5-16.0); IMMATURE GRAN ABSOLUTE AUTO 0.07 K/mm3 (0.00-0.10); IMMATURE GRAN PERCENT AUTO 1 % (0-1); LYMPHOCYTES ABSOLUTE AUTO 1.25 K/mm3 (0.84-5.20); LYMPHOCYTES PERCENT AUTO 19 % (21-46); MONOCYTES ABSOLUTE AUTO 0.58 K/mm3 (0.16-1.47); MONOCYTES PERCENT AUTO 9 % (4-13); Mean Corpuscular HGB 30.5 pg (26.0-34.0); Mean Corpuscular HGB Conc 34.8 g/dL (31.5-36.5); Mean Corpuscular Volume 88 fL (80-100); Mean Platelet Volume 11.8 fL (9.1-12.4); NEUTROPHILS ABSOLUTE AUTO 4.41 K/mm3 (1.96-9.15); NEUTROPHILS PERCENT AUTO 68 % (41-73); NRBC ABSOLUTE 0.05 K/mm3 (0.00-0.02); NRBC Auto 0.8 /100 WBC (0.0-0.2); Platelet Count 175 K/mm3 (150-400); RDW Coefficient Variation 14.4 % (11.7-14.2); RDW Standard Deviation 45.3 fL (35.1-46.3); White Blood Cell Count 6.45 K/mm3 (4.00-11.30)
[2019-04-26 06:46] LABS: Alanine Aminotransfer (ALT/SGP 37 U/L (12-78); Albumin, Blood 1.9 g/dL (3.4-5.0); Albumin/Globulin Ratio 0.6 (0.8-1.8); Alk Phos 186 U/L (50-136); Amylase, Blood 34 U/L (25-115); Anion Gap 15 mmol/L (6-16); Aspartate Aminotrans (AST/SGOT 56 U/L (12-37); Blood Urea Nitrogen 1 mg/dL (8-24); Bun/Creatinine Ratio 2.3 (12.0-20.0); CO2, Blood 14 mmol/L (21-32); Calcium, Blood 8.6 mg/dL (8.5-10.1); Chloride, Blood 107 mmol/L (98-108); Creatinine, Blood 0.44 mg/dL (0.40-1.00); Globulin, Blood 3.4 g/dL (2.2-4.0); Glomerular Filtration Rate >60 (60-); Glucose, Blood 102 mg/dL (70-99); Potassium, Blood 3.2 mmol/L (3.5-5.5); Sodium, Blood 136 mmol/L (136-145); Total Protein, Blood 5.3 g/dL (6.4-8.2)
--- NOTE | 2019-04-26 07:48 | NUR ---
IN WITH THIS AM, DISCUSSED LABS AND PT'S BP STARTING TO RISE. PLAN TO DO 37 WEEK INDUCTION NEXT MONDAY. PT DOING OK, K LEVEL HIGHER SINCE INFUSIONS LAST NIGHT. POSSIBLE DC HOME TODAY. PLAN TO KEEP ATC INFUSION APPTS FOR NEXT MONDAY. PT HAS OWN MEDS AT HOME. PT SMILING AND HAPPY TO BE INDUCED NEXT WEEK. PT REQUESTED ROOT BEER, GIVEN. PT'S YULI AT SIDE. HE IS EXCITED WELL. OFFERED TO DO NST, PT REQUESTS TO MAKE SOME PHONE CALLS FIRST, WILL CALL WHEN READY TO DO MONITORING. PREVIOUS SHIFT REPORTS PETECHIA ON ARMS LEGS FEET. AND I EXMAINED PT TOGETHER, LOOKS MORE LIKE SCRATCHES, DRY SKIN, PT IS EDEMATOUS, BLANCHES. NOT CONCEREND. PT DENIES AND S/S OF ECLAMPSIA. PT HAS POWER GLIDE, WILL LEAVE IN PLACE AT DC IF SHE DOES INDEED GO HOME TODAY.
--- NOTE | 2019-04-26 08:05 | NUR ---
POWER GLIDE WAS PLACED ON 04-14-19 @ 9715. DAY 12 TODAY.
--- NOTE | 2019-04-26 11:06 | NUR ---
ROUNDING MOM ON BREAST NURSING WELL MOM REPORTED THAT SHE WAS ABLE TO GET A GOOD LATCH WITH OUT THE SHIELD. PT. DENIES NEED FOR FUTHER HELP AT THIS TIME.
--- NOTE | 2019-04-26 11:10 | NUR ---
CHARTEED ON WRONG PT. IN ERROR I CHARTED ON WRONG PT. FOR . UNABLE TO REMOVE NOTE AT THIS TIME.
--- NOTE | 2019-04-26 13:59 | NUR ---
at 1110 PT DC HOME, POWER GLIDE SALINE LOCKED. SEE PAPER CHARTING. NST REACTIVE.
== END 2019-04-26 11:07 | disposition home or self-care (01) ==
LOC: BC 10:30 → OBS 10:30 → BC 13:06 → OBS 13:06 → BC 04-26 11:07
PROVIDERS: ADMIT Obstetrics & Gynecology
DX: O21.1 Hyperemesis gravidarum with metabolic disturbance (principal); O14.03 Mild to moderate pre-eclampsia, third trimester; O99.213 Obesity complicating pregnancy, third trimester; O99.283 Endocrine, nutritional and metabolic diseases complicating pregnancy, third trimester; E66.9 Obesity, unspecified; E28.2 Polycystic ovarian syndrome; Z3A.36 36 weeks gestation of pregnancy; Z79.899 Other long term (current) drug therapy; Z91.013 Allergy to seafood; Z91.030 Bee allergy status; Z91.048 Other nonmedicinal substance allergy status
CPT/HCPCS: 36415; 59025; 80053; 82150; 82570; 83690; 84156; 85025; 96365; 96366; 96375; 96376; C1751; C9113; G0378; J0780; J2060; J2405; J3480; J7120

== ENCOUNTER → 2019-04-25 | Outpatient (CLI) | payer OTHER ==
[~2019-04-25] MED LIST changes: +IBUP800 PO; +LORA.5 PO; +PERCOCET; +Percocet 5-3251 EACH PO
== END | disposition home or self-care (01) ==
LOC: LAB SHORT 09:45 → LAB 09:45
DX: Z34.93 Encounter for supervision of normal pregnancy, unspecified, third trimester (principal)
CPT/HCPCS: 87081; 87653

== ENCOUNTER 2019-05-01 05:08 | Inpatient (IN) | payer OTHER ==
[~2019-05-01] VITALS: Ht 157.5 cm; Wt 99.5 kg
[2019-05-01 05:48] LABS: BASOPHILS ABSOLUTE AUTO 0.03 K/mm3 (0.00-0.23); BASOPHILS PERCENT AUTO 1 % (0-2); EOSINOPHILS ABSOLUTE AUTO 0.04 K/mm3 (0.00-0.68); EOSINOPHILS PERCENT AUTO 1 % (0-6); Hematocrit 39.4 % (33.0-51.0); Hemoglobin 13.8 g/dL (11.5-16.0); IMMATURE GRAN ABSOLUTE AUTO 0.13 K/mm3 (0.00-0.10); IMMATURE GRAN PERCENT AUTO 2 % (0-1); LYMPHOCYTES ABSOLUTE AUTO 1.94 K/mm3 (0.84-5.20); LYMPHOCYTES PERCENT AUTO 29 % (21-46); MONOCYTES ABSOLUTE AUTO 0.49 K/mm3 (0.16-1.47); MONOCYTES PERCENT AUTO 7 % (4-13); Mean Corpuscular HGB 30.1 pg (26.0-34.0); Mean Corpuscular Volume 86 fL (80-100); Mean Platelet Volume 11.8 fL (9.1-12.4); NEUTROPHILS ABSOLUTE AUTO 3.98 K/mm3 (1.96-9.15); NEUTROPHILS PERCENT AUTO 60 % (41-73); NRBC ABSOLUTE 0.06 K/mm3 (0.00-0.02); NRBC Auto 0.9 /100 WBC (0.0-0.2); Platelet Count 193 K/mm3 (150-400); RDW Coefficient Variation 14.1 % (11.7-14.2); RDW Standard Deviation 43.4 fL (35.1-46.3); Red Blood Cell Count 4.59 M/mm3 (3.80-5.20); White Blood Cell Count 6.61 K/mm3 (4.00-11.30)
[2019-05-01] MEDS ORDERED: LORA.5 PO (05:56)
[2019-05-01 07:03] LABS: Alanine Aminotransfer (ALT/SGP 38 U/L (12-78); Albumin, Blood 2.1 g/dL (3.4-5.0); Albumin/Globulin Ratio 0.5 (0.8-1.8); Alk Phos 243 U/L (50-136); Anion Gap 21 mmol/L (6-16); Aspartate Aminotrans (AST/SGOT 57 U/L (12-37); Bilirubin, Total 0.8 mg/dL (0.1-1.0); Blood Urea Nitrogen 3 mg/dL (8-24); CO2, Blood 10 mmol/L (21-32); Calcium, Blood 8.7 mg/dL (8.5-10.1); Chloride, Blood 103 mmol/L (98-108); Globulin, Blood 4.1 g/dL (2.2-4.0); Glomerular Filtration Rate >60 (60-); Glucose, Blood 172 mg/dL (70-99); Potassium, Blood 2.8 mmol/L (3.5-5.5); Sodium, Blood 134 mmol/L (136-145); Total Protein, Blood 6.2 g/dL (6.4-8.2)
[2019-05-01 11:23] LABS: PCO2 Cord - Arterial 46.1 mmHg (40-50); pH Cord - Arterial 7.08 (7.28-7.35)
[2019-05-01 11:24] LABS: PO2 Cord - Arterial > 13 mmHg (16-20)
[2019-05-01 11:25] LABS: PCO2 Cord - Venous 37.4 mmHg (40-50); PO2 Cord - Venous 16.6 mmHg (28-32); pH Umbilical Cord - Venous 7.17 (7.26-7.35)
[2019-05-01 17:39] LABS: BASOPHILS ABSOLUTE AUTO 0.03 K/mm3 (0.00-0.23); BASOPHILS PERCENT AUTO 0 % (0-2); EOSINOPHILS ABSOLUTE AUTO 0.02 K/mm3 (0.00-0.68); EOSINOPHILS PERCENT AUTO 0 % (0-6); Hematocrit 34.1 % (33.0-51.0); Hemoglobin 11.9 g/dL (11.5-16.0); IMMATURE GRAN ABSOLUTE AUTO 0.09 K/mm3 (0.00-0.10); IMMATURE GRAN PERCENT AUTO 1 % (0-1); LYMPHOCYTES ABSOLUTE AUTO 2.08 K/mm3 (0.84-5.20); LYMPHOCYTES PERCENT AUTO 17 % (21-46); MONOCYTES ABSOLUTE AUTO 0.82 K/mm3 (0.16-1.47); MONOCYTES PERCENT AUTO 7 % (4-13); Mean Corpuscular HGB 30.1 pg (26.0-34.0); Mean Corpuscular HGB Conc 34.9 g/dL (31.5-36.5); Mean Corpuscular Volume 86 fL (80-100); Mean Platelet Volume 11.5 fL (9.1-12.4); NEUTROPHILS ABSOLUTE AUTO 9.31 K/mm3 (1.96-9.15); NEUTROPHILS PERCENT AUTO 76 % (41-73); NRBC ABSOLUTE 0.03 K/mm3 (0.00-0.02); NRBC Auto 0.2 /100 WBC (0.0-0.2); Platelet Count 167 K/mm3 (150-400); RDW Coefficient Variation 14.3 % (11.7-14.2); RDW Standard Deviation 44.2 fL (35.1-46.3); Red Blood Cell Count 3.95 M/mm3 (3.80-5.20); White Blood Cell Count 12.35 K/mm3 (4.00-11.30)
[2019-05-01 17:58] LABS: Anion Gap 18 mmol/L (6-16); Blood Urea Nitrogen 2 mg/dL (8-24); Bun/Creatinine Ratio 3.7 (12.0-20.0); CO2, Blood 13 mmol/L (21-32); Calcium, Blood 8.1 mg/dL (8.5-10.1); Chloride, Blood 104 mmol/L (98-108); Creatinine, Blood 0.54 mg/dL (0.40-1.00); Glomerular Filtration Rate >60 (60-); Glucose, Blood 184 mg/dL (70-99); Sodium, Blood 135 mmol/L (136-145)
[2019-05-02 05:48] LABS: Hematocrit 33.4 % (33.0-51.0); Hemoglobin 11.7 g/dL (11.5-16.0); Mean Corpuscular HGB 30.3 pg (26.0-34.0); Mean Corpuscular Volume 87 fL (80-100); Mean Platelet Volume 11.2 fL (9.1-12.4); NRBC ABSOLUTE 0.03 K/mm3 (0.00-0.02); NRBC Auto 0.3 /100 WBC (0.0-0.2); Platelet Count 147 K/mm3 (150-400); RDW Coefficient Variation 14.3 % (11.7-14.2); RDW Standard Deviation 45.1 fL (35.1-46.3); Red Blood Cell Count 3.86 M/mm3 (3.80-5.20); White Blood Cell Count 9.12 K/mm3 (4.00-11.30)
[2019-05-02 06:12] LABS: Alanine Aminotransfer (ALT/SGP 28 U/L (12-78); Albumin, Blood 1.6 g/dL (3.4-5.0); Albumin/Globulin Ratio 0.5 (0.8-1.8); Alk Phos 185 U/L (50-136); Anion Gap 13 mmol/L (6-16); Aspartate Aminotrans (AST/SGOT 31 U/L (12-37); Bilirubin, Total 0.7 mg/dL (0.1-1.0); Blood Urea Nitrogen 2 mg/dL (8-24); Bun/Creatinine Ratio 4.6 (12.0-20.0); CO2, Blood 17 mmol/L (21-32); Calcium, Blood 8.4 mg/dL (8.5-10.1); Chloride, Blood 104 mmol/L (98-108); Creatinine, Blood 0.44 mg/dL (0.40-1.00); Globulin, Blood 3.3 g/dL (2.2-4.0); Glomerular Filtration Rate >60 (60-); Glucose, Blood 224 mg/dL (70-99); Potassium, Blood 2.7 mmol/L (3.5-5.5); Sodium, Blood 134 mmol/L (136-145); Total Protein, Blood 4.9 g/dL (6.4-8.2)
[2019-05-03 05:58] LABS: Alanine Aminotransfer (ALT/SGP 27 U/L (12-78); Albumin, Blood 1.6 g/dL (3.4-5.0); Albumin/Globulin Ratio 0.5 (0.8-1.8); Alk Phos 172 U/L (50-136); Anion Gap 11 mmol/L (6-16); Aspartate Aminotrans (AST/SGOT 34 U/L (12-37); Bilirubin, Total 0.5 mg/dL (0.1-1.0); Blood Urea Nitrogen 5 mg/dL (8-24); Bun/Creatinine Ratio 9.5 (12.0-20.0); CO2, Blood 18 mmol/L (21-32); Calcium, Blood 8.2 mg/dL (8.5-10.1); Chloride, Blood 107 mmol/L (98-108); Creatinine, Blood 0.53 mg/dL (0.40-1.00); Globulin, Blood 3.2 g/dL (2.2-4.0); Glomerular Filtration Rate >60 (60-); Glucose, Blood 138 mg/dL (70-99); Magnesium, Blood 1.5 mg/dL (1.6-2.4); Potassium, Blood 3.9 mmol/L (3.5-5.5); Sodium, Blood 136 mmol/L (136-145); Total Protein, Blood 4.8 g/dL (6.4-8.2)
[2019-05-03] MEDS ORDERED: IBUP800 PO (10:02)
[2019-05-03] MEDS ORDERED: Percocet 5-3251 EACH PO (10:02)
== END 2019-05-03 16:40 | disposition home or self-care (01) | DRG 788 ==
LOC: OBS 05:08 → BC 05:08 → OBS 05:14 → BC 05:15
PROVIDERS: ADMIT Obstetrics & Gynecology
PROC: 10D00Z1 Extraction of Products of Conception, Low, Open Approach (ICD-10-PCS; principal; 2019-05-01 10:45)
DX: O14.04 Mild to moderate pre-eclampsia, complicating childbirth (principal); O76 Abnormality in fetal heart rate and rhythm complicating labor and delivery; O99.824 Streptococcus B carrier state complicating childbirth; O99.284 Endocrine, nutritional and metabolic diseases complicating childbirth; E87.6 Hypokalemia; Z3A.37 37 weeks gestation of pregnancy; Z37.0 Single live birth; Z91.013 Allergy to seafood
CPT/HCPCS: 36415; 80048; 80053; 82803; 82947; 83735; 85025; 85027; 85460; 86850; 86900; 86901; 88307; 97162; 97530; C9113; J0290; J0690; J1815; J1885; J2370; J2405; J2590; J2765; J3010; J3480; J7120

== ENCOUNTER 2019-05-05 03:14 | Inpatient (IN) | payer OTHER ==
[~2019-05-05] VITALS: Ht 157.5 cm; Wt 96.1 kg
[~2019-05-05 03:14] MED LIST changes: +IBUP800 PO; +LORA.5 PO; +Percocet 5-3251 EACH PO
[2019-05-05] MEDS ORDERED: PERCOCET (03:31)
[2019-05-05 04:18] LABS: BASOPHILS ABSOLUTE AUTO 0.02 K/mm3 (0.00-0.23); BASOPHILS PERCENT AUTO 0 % (0-2); EOSINOPHILS ABSOLUTE AUTO 0.03 K/mm3 (0.00-0.68); EOSINOPHILS PERCENT AUTO 1 % (0-6); Hematocrit 31.4 % (33.0-51.0); Hemoglobin 10.8 g/dL (11.5-16.0); IMMATURE GRAN ABSOLUTE AUTO 0.23 K/mm3 (0.00-0.10); IMMATURE GRAN PERCENT AUTO 5 % (0-1); LYMPHOCYTES ABSOLUTE AUTO 1.93 K/mm3 (0.84-5.20); LYMPHOCYTES PERCENT AUTO 40 % (21-46); MONOCYTES ABSOLUTE AUTO 0.29 K/mm3 (0.16-1.47); MONOCYTES PERCENT AUTO 6 % (4-13); Mean Corpuscular HGB 30.3 pg (26.0-34.0); Mean Corpuscular HGB Conc 34.4 g/dL (31.5-36.5); Mean Corpuscular Volume 88 fL (80-100); Mean Platelet Volume 11.2 fL (9.1-12.4); NEUTROPHILS ABSOLUTE AUTO 2.28 K/mm3 (1.96-9.15); NEUTROPHILS PERCENT AUTO 48 % (41-73); NRBC ABSOLUTE 0.02 K/mm3 (0.00-0.02); NRBC Auto 0.4 /100 WBC (0.0-0.2); Platelet Count 136 K/mm3 (150-400); RDW Coefficient Variation 14.4 % (11.7-14.2); RDW Standard Deviation 46.1 fL (35.1-46.3); Red Blood Cell Count 3.57 M/mm3 (3.80-5.20); White Blood Cell Count 4.78 K/mm3 (4.00-11.30)
[2019-05-05 04:37] LABS: Alanine Aminotransfer (ALT/SGP 21 U/L (12-78); Albumin, Blood 1.3 g/dL (3.4-5.0); Albumin/Globulin Ratio 0.5 (0.8-1.8); Alk Phos 149 U/L (50-136); Anion Gap 10 mmol/L (6-16); Aspartate Aminotrans (AST/SGOT 22 U/L (12-37); Bilirubin, Total 0.5 mg/dL (0.1-1.0); Blood Urea Nitrogen 4 mg/dL (8-24); Bun/Creatinine Ratio 11.9 (12.0-20.0); CO2, Blood 18 mmol/L (21-32); Chloride, Blood 114 mmol/L (98-108); Creatinine, Blood 0.34 mg/dL (0.40-1.00); Globulin, Blood 2.7 g/dL (2.2-4.0); Glomerular Filtration Rate >60 (60-); Glucose, Blood 82 mg/dL (70-99); Potassium, Blood 2.5 mmol/L (3.5-5.5); Sodium, Blood 142 mmol/L (136-145)
[2019-05-05 05:21] LABS: Calcium, Blood 6.1 mg/dL (8.5-10.1)
--- NOTE | 2019-05-05 06:56 | NUR ---
PT ADMITTED FROM ER FOR PRE-ECLAMPSIA. PT VERY WITHDRAWN, ONLY ANSWERS QUESTIONS IN A WHISPER IF A VERBAL RESPONSE OTHER THAN YES OR NO REQUIRED.
--- NOTE | 2019-05-05 08:01 | NUR ---
0800 SPOKE WITH PATIENTS FATHER. HE STATES THAT HE IS VERY CONCERNED ABOUT THE RECURRENT, NAUSEA AND VOMITING, BLURRED VISION AND WEAKNESS. HE WOULD LIKE TO SEE THESE ISSUES RESOLVED AND WOULD LIKE TO CALL IN SPECIALISTS IF NECESSARY. HE IS FRUSTRATED WITH IGGY'S ONGOING ILLNESS AND WOULD LIKE TO SEE HER FEELING BETTER
[2019-05-05 12:38] LABS: Alanine Aminotransfer (ALT/SGP 28 U/L (12-78); Albumin, Blood 1.7 g/dL (3.4-5.0); Albumin/Globulin Ratio 0.5 (0.8-1.8); Alk Phos 189 U/L (50-136); Anion Gap 10 mmol/L (6-16); Aspartate Aminotrans (AST/SGOT 42 U/L (12-37); Bilirubin, Total 0.7 mg/dL (0.1-1.0); Blood Urea Nitrogen 6 mg/dL (8-24); CO2, Blood 21 mmol/L (21-32); Calcium, Blood 7.7 mg/dL (8.5-10.1); Chloride, Blood 106 mmol/L (98-108); Free Thyroxine 1.13 ng/dL (0.70-1.60); Globulin, Blood 3.6 g/dL (2.2-4.0); Glomerular Filtration Rate >60 (60-); Glucose, Blood 107 mg/dL (70-99); Potassium, Blood 4.4 mmol/L (3.5-5.5); Sodium, Blood 137 mmol/L (136-145); Total Protein, Blood 5.3 g/dL (6.4-8.2)
[2019-05-05 17:40] LABS: Source, Urine Clean Catch
[2019-05-05 17:48] LABS: Bilirubin, Urine Neg (Neg); Blood, Urine 5+ (Neg); Glucose Qualitative, Urine Neg (Neg); Ketones, Urine 1+ (Neg); Leukocyte Esterase, Urine 3+ (Neg); Nitrite, Urine Neg (Neg); Protein, Urine 3+ (Neg); Urobilinogen, Urine NORM (Normal)
[2019-05-05 18:00] LABS: Appearance, Urine Cloudy (Clear); Color, Urine Yellow (P-Yellow)
[2019-05-05 18:03] LABS: Red Blood Cells, Urine TNTC /hpf (0-2); Squamous Epithelial Cells Few /hpf (Few)
[2019-05-05 18:07] LABS: Bacteria Few /hpf
--- NOTE | 2019-05-05 19:26 | NUR ---
READMIT FOR VOMITING.
--- NOTE | 2019-05-05 19:34 | NUR ---
1000 PATIENT NEARLY NONVERBAL, REFUSES TO EAT ANY SOLID FOOD. TAKING A FEW SIPS OF WATER/TEA. PATIENTS FATHER AGAIN ASKING FOR SOMEONE TO FIGURE OUT THE CAUSE OF THE VOMITING AND WEAKNESS. WAITING HOSPITALIST TO SEE
--- NOTE | 2019-05-05 19:37 | NUR ---
1200 RESTING PATIENT STATES SHE IS TIRED AND WANTS TO REST. WILL LEAVE HER ALONE SO SHE CAN SLEEP PER HER REQUEST
--- NOTE | 2019-05-05 19:38 | NUR ---
1700 ACTIVITY ATTEMPTED TO GET PATIENT OOB TO BATHROOM. PATIENT HAS NO URGE TO VOID BUT WAS WILLING TO TRY. PATIENT BECAME DIZZY AND HAD BLURRED VISION WITH POSITION CHANGE. PATIENT WAS UNABLE TO FLEX HER ANKLES, STATED SHE COULDN'T FEEL HER FEET AND COULDN'T SEE. PATIENT SLIPPED TO THE EDGE OF THE BED AND WOULD HAVE SLID OFF THE MATTRESS EXCEPT FOR THE ASSISTANCE OF STAFF AND FAMILY. RETURNED PATIENT TO BED AND PLACED HER ON A BEDPAN. PATIENT VOIDED, UA SET TO LAB. TO RADIOLOGY FOR CT SCAN. PATIENT BEGAN VOMITING DURING SCAN AND THEY HAD TO END THE SCAN EARLY. RETURNED PATIENT TO ROOM AND TRANSFERED BACK TO BED
--- NOTE | 2019-05-05 20:37 | NUR ---
SBAR WITH DR. UGO ARIZMENDI CALLED TO REQUEST PT RETRY MRI. ATTEMPT THIS AFTERNOON CAUSED PT VOMITTING AND PICTURES REQUIRED WERE NOT ACHIEVED. HE RECOMMENDS TRYING IV BENADRYL AND/OR ATIVAN PRN FOR NAUSEA AND VERTIGO, AND WOULD LIKE HER TO BE MEDICATED BEFORE GOING UP TO MRI NEXT TIME. HE CALLED RADIOLOGY AND THEY SAID THEY WERE GOING TO TRY TO GET A TECH TO COME AND DO THE MRI, BUT IT MIGHT NOT HAPPEN UNTIL THE MORNING. HE ALSO WOULD LIKE THE PT'S NEUROLOGICAL STATUS WATCHED CLOSESLY TO ASSESS WORSENING, AND CONSIDER TRANSFERING PT TO NO OF SYMPTOMS WORSEN. THIS INFOR WAS RELAYED TO THE PT AND TO DR. VENTURA WHO WAS ON UNIT. WILSON VELEZ.
--- NOTE | 2019-05-05 20:40 | NUR ---
PT STATED "I'M DONE" AND "CAN I JUST BE TRANSFERED TO [place]? MY BABY IS THERE." PT'S MOM AT BEDSIDE EXPRESSED CONCERN THAT WE ARE NOT FIGURING OUT WHAT IS WRONG WITH HER. THIS INFO RELAYED TO DR. VENTURA AND REQUESTED SHE TALK TO PATIENT ABOUT THIS. ROSIE, RN
--- NOTE | 2019-05-05 20:42 | NUR ---
REPORT GIVEN TO JESSICA LOZANO AT 2030 AND CARE TRANSFERED. THIS NURSE ROUNDED ON PT AND INFORMED HER OF THE PLAN TO HAVE JESSICA BE HER NURSE FOR THE NIGHT. ROSIE, RN
--- NOTE | 2019-05-05 21:41 | NUR ---
SHIFT ASSESSMENT- PT CONTINUES TO HAVE NYSTAGMUS AND BLURRY VISION, REPORTS INTERMITTENT RUQ STABBING PAIN, NO HEARTBURN AT THIS TIME. PT CONTINUES TO REPORT BEING UNABLE TO FEEL OR MOVE HER LEGS. DR VENTURA AWARE.
--- NOTE | 2019-05-05 21:43 | NUR ---
PLAN OF CARE DISCUSSED WITH PT BY DR VENTURA, PT CONTEMPLATED POSSIBLE AMA DISCHARGE TONIGHT TO GO TO [facility], HAS DECIDED AGAINST THAT AT THIS TIME AND IS WILLING TO TRY A CT SCAN INSTEAD.
--- NOTE | 2019-05-06 03:30 | NUR ---
ASSUMED CARE OF PT. REPORT RECEIVED FROM WILSON LOPEZ.
--- NOTE | 2019-05-06 03:45 | NUR ---
PT STATES SHE FEELS DISORIENTED AND HER MOTHER REPORTS THAT SHE IS CONFUSED. THE PT SPEAKS IN A WHISPER AND STATES THAT SHE THOUGHT SHE WAS VOMITING ALL NIGHT AND NAUSEATED, BUT SAYS HER STOMACH FEELS FINE. THIS IS AFTER ASKING FOR MEDICATION FOR NAUSEA JUST A FEW MINUTES PRIOR. PT'S MOTHER REPORTS THAT SHE SOMETIMES GETS CONFUSED WHEN SHE TAKES BENADRYL.
--- NOTE | 2019-05-06 04:45 | NUR ---
PT IS REPOSITIONED AND CAN MOVE HER FEET WHEN ASKED.
--- NOTE | 2019-05-06 04:45 | NUR ---
PT STATES THAT SHE NO LONGER FEELS DISORIENTED. SHE THINKS SHE JUST HAD A VIVID DREAM AND WOKE UP CONFUSED. SHE DENIES NAUSEA AT THIS TIME AND REUSES BENADRYL.
[2019-05-06 05:12] LABS: BASOPHILS ABSOLUTE AUTO 0.03 K/mm3 (0.00-0.23); BASOPHILS PERCENT AUTO 1 % (0-2); EOSINOPHILS ABSOLUTE AUTO 0.06 K/mm3 (0.00-0.68); EOSINOPHILS PERCENT AUTO 1 % (0-6); Hematocrit 30.5 % (33.0-51.0); Hemoglobin 10.4 g/dL (11.5-16.0); IMMATURE GRAN ABSOLUTE AUTO 0.24 K/mm3 (0.00-0.10); IMMATURE GRAN PERCENT AUTO 4 % (0-1); LYMPHOCYTES ABSOLUTE AUTO 2.15 K/mm3 (0.84-5.20); LYMPHOCYTES PERCENT AUTO 40 % (21-46); MONOCYTES ABSOLUTE AUTO 0.64 K/mm3 (0.16-1.47); MONOCYTES PERCENT AUTO 12 % (4-13); Mean Corpuscular HGB Conc 34.1 g/dL (31.5-36.5); Mean Corpuscular Volume 88 fL (80-100); Mean Platelet Volume 11.1 fL (9.1-12.4); NEUTROPHILS ABSOLUTE AUTO 2.31 K/mm3 (1.96-9.15); NEUTROPHILS PERCENT AUTO 43 % (41-73); Platelet Count 132 K/mm3 (150-400); RDW Coefficient Variation 14.6 % (11.7-14.2); RDW Standard Deviation 46.1 fL (35.1-46.3); Red Blood Cell Count 3.47 M/mm3 (3.80-5.20); White Blood Cell Count 5.43 K/mm3 (4.00-11.30)
[2019-05-06 05:33] LABS: Alanine Aminotransfer (ALT/SGP 27 U/L (12-78); Albumin, Blood 1.6 g/dL (3.4-5.0); Albumin/Globulin Ratio 0.5 (0.8-1.8); Alk Phos 179 U/L (50-136); Anion Gap 10 mmol/L (6-16); Aspartate Aminotrans (AST/SGOT 46 U/L (12-37); Bilirubin, Total 0.9 mg/dL (0.1-1.0); Blood Urea Nitrogen 7 mg/dL (8-24); Bun/Creatinine Ratio 17.2 (12.0-20.0); CO2, Blood 22 mmol/L (21-32); Calcium, Blood 7.7 mg/dL (8.5-10.1); Chloride, Blood 106 mmol/L (98-108); Creatinine, Blood 0.41 mg/dL (0.40-1.00); Globulin, Blood 3.2 g/dL (2.2-4.0); Glomerular Filtration Rate >60 (60-); Glucose, Blood 105 mg/dL (70-99); Potassium, Blood 3.4 mmol/L (3.5-5.5); Sodium, Blood 138 mmol/L (136-145); Total Protein, Blood 4.8 g/dL (6.4-8.2)
[2019-05-06 05:34] LABS: Magnesium, Blood 1.9 mg/dL (1.6-2.4)
[2019-05-06 05:35] LABS: Albumin, Blood 1.6 g/dL (3.4-5.0); Anion Gap 9 mmol/L (6-16); Blood Urea Nitrogen 8 mg/dL (8-24); Bun/Creatinine Ratio 19.5 (12.0-20.0); CO2, Blood 22 mmol/L (21-32); Calcium, Blood 7.6 mg/dL (8.5-10.1); Chloride, Blood 106 mmol/L (98-108); Creatinine, Blood 0.41 mg/dL (0.40-1.00); Glomerular Filtration Rate >60 (60-); Glucose, Blood 105 mg/dL (70-99); Phosphorus, Blood 2.2 mg/dL (2.5-4.9); Potassium, Blood 3.4 mmol/L (3.5-5.5); Sodium, Blood 137 mmol/L (136-145)
--- NOTE | 2019-05-06 07:15 | NUR ---
MRI RN ASKED PT IF SHE WAS OK WITH HAVING ANOTHER MRI DONE, IMAGING WAS READY TO COME TO GET HER. PT AGREED TO HAVE MRI DONE.
--- NOTE | 2019-05-06 07:30 | NUR ---
IMAGINING IMAGING HERE WITH JHONNY TO TAKE PT TO MRI. PT REFUSED MRI. NISHI Pierre AND TEDDY FROM IMAGINING IN ROOM.
--- NOTE | 2019-05-06 07:47 | NUR ---
SHIFT ASSESSMENT PT C/O BLURRINESS IN EYES, ONLY BEING ABLE TO MOVE TOES BUT HAS FEELING IN ALL EXTREMNTIES. PT MOVES UPPER EXTREMNITIES. PT HAD 2+ BLE EDEMA, NO CLONUS. FAMILY AT BEDSIDE.
--- NOTE | 2019-05-06 07:50 | NUR ---
BREAKFAST PT EATING BREAKFAST, NO SWALLOWING OR CHEWING ISSUES.
--- NOTE | 2019-05-06 08:26 | NUR ---
GREEN PHLEGM PT MOTHER EXPLAINED THAT PT HAS HAD STREAKS OF GREEN PHLEGM WHEN BLOWING NOSE FOR MONTHS. PT ATE 40 % OF YOGURT WITH FRUIT AND 10% OF KELLOGS FLAKES WITH MILK.
--- NOTE | 2019-05-06 08:32 | NUR ---
POSITION PT IN SEMI FOWLERS POSITION
--- NOTE | 2019-05-06 10:00 | NUR ---
PT POSITION CHANGED
--- NOTE | 2019-05-06 12:00 | NUR ---
PT POSITION PT POSITIONED RIGHT TILT WITH PILLOWS UNDER FEET AND BEHIND BACK. PT SITTING UP SEMI FOWLERS, REPOSITIONED NISHI Pierre AND LESLIE Diehl
--- NOTE | 2019-05-06 14:13 | NUR ---
WEIGHT PT STATES UNABLE TO STAND FOR DAILY WEIGHT, PT FEELING A LITTLE NAUSEAUS BUT REFUSES ZOFRAN,UNABLE TO OBTAIN WEIGHT FROM BED BECAUSE PT UNABLE TO LAY BACK. RN WILL REATTEMPT DAILY WEIGHT.
--- NOTE | 2019-05-06 15:32 | NUR ---
PT POSITION LEFT TILT WITH PILLOWS UNDER FEET AND BACK, SEMI FOWLERS
--- NOTE | 2019-05-06 15:34 | NUR ---
PT WEIGHT PT WEIGHT VIA BED WEIGH IS 210.6 LBS. RN REPOSITIONED WITH ALESHA Diehl
--- NOTE | 2019-05-06 16:44 | NUR ---
NEW GOWN PT HAD SCANT EMESIS ON GOWN. NEW GOWN ON PT.
--- NOTE | 2019-05-06 17:10 | NUR ---
DR. VENTURA IN ROOM WITH PT UPDATING PT ON CARE PLAN. PT ANOTHER MRI.
--- NOTE | 2019-05-06 18:00 | NUR ---
DR. FISHER IN ROOM CONSULTING PT.
--- NOTE | 2019-05-06 18:15 | NUR ---
PT STATES FEELING FRUSTRATED, PT STATES WANTING TO BE WITH HER NB AT [facility]. RN PROVIDED POSTIVE SUPPORT TO PT.
--- NOTE | 2019-05-06 18:30 | NUR ---
CT SCAN PT STATES THAT SHE IS READY FOR CT SCAN. IMAGING CALLED AND WILL BE ON THEIR WAY.
--- NOTE | 2019-05-06 18:52 | NUR ---
IMAGING IMAGING HERE TO TAKE PT TO GET CT SCAN. PT TRANSFERRED VIA SLIDER SHEET TO THE [facility] WITH 4 PERSON ASSIST. PT TOLERATED WELL. NEW LINENS ON PT BED.
--- NOTE | 2019-05-07 05:48 | NUR ---
REFUSAL OF MRI DISCUSSED PT REASONING FOR REFUSING THE MRI. PT STATES THAT SHE IS TOO AFRAID TO GET CACK IN THE MRI MACHINE. THIS RN RENIFORCED THAT SHE COULD BE PRE-MEDICATED FOR PRIOR TO THE TEST. PT DECLINES WANTING ANY MEDICATIONS BECAUSE IT MAKE HER FEEL "LOOPY" AND "OUT OF IT." DISCUSSED STATES THAT SHE THINKS IF SHE CAN JUST START WALKING AGIAN THAT SHE WILL BE STRONGER AND GET BETTER. PT ALSO REPORTS THAT SHE IS NOW ABLEL TO FEEL HER FEET AND HER VISION IS IMPROVING. WHEN ASKED IF SHE WAS ABLE TO MOVE HER FEET IN BED PT STATED THAT SHE CAN'T DUE TO HER BOOTS AND PAS. BOTH BOOT AND PAS REMOVED. PT UNABLE TO FLEX FOOT AT ANKLE. CAN MOVE KNEE SLIGHTLY. CONTINUES TO BE UNABLE TO MOVE LEG OFF OF BED. PLAN TO REPLACE BOOTS AND PAS AFTER A 15-30 MINUTE BREAK. PT WISHING TO CONTINUE TO TRY AND WINDOW SHADE INSTALLER HER FEET MORE, HER FATHER IS ASSISTING PT TO FLEX ANKLE. PT AWARE TO NOT ATTEMPT GETTING OUT OF BED WITH OUT STAFF ASSISTANCE.
[2019-05-07 06:47] LABS: Albumin, Blood 1.8 g/dL (3.4-5.0); Anion Gap 9 mmol/L (6-16); Blood Urea Nitrogen 6 mg/dL (8-24); Bun/Creatinine Ratio 14.4 (12.0-20.0); CO2, Blood 23 mmol/L (21-32); Calcium, Blood 8.2 mg/dL (8.5-10.1); Chloride, Blood 105 mmol/L (98-108); Creatinine, Blood 0.42 mg/dL (0.40-1.00); Glomerular Filtration Rate >60 (60-); Glucose, Blood 94 mg/dL (70-99); Magnesium, Blood 1.7 mg/dL (1.6-2.4); Phosphorus, Blood 2.6 mg/dL (2.5-4.9); Potassium, Blood 3.3 mmol/L (3.5-5.5); Sodium, Blood 137 mmol/L (136-145)
--- NOTE | 2019-05-07 07:45 | NUR ---
PT ASSESSMENT PT WAS SITTING UP ON SIDE OF BED WITH HER FATHERS ASSIST I DID A FULL ASSESMENT AND NOTED TOTAL RT SIDE WEAKNESS WITH FOOT DROP AUTO PORTER WERE EQUAL MAYBE SLIGHT WEAKNESS ON RT SIDE. PT WAS HAVING A DIFFICULT TIME HOLDING HERSELF UP RIGHT WITHOUT SWAYING. PT IN TEARS STATES " JUST WAN TO BE TRANSFERED/OR DCD TO BE WITH MY BABY, I DONT KNOW WHATS WRONG WITH ME I COULD WALK A FEW DAYS AGO ANOW NOTHING". I TOLD PT PT WILL BE DOWN IN AN HOUR FOR ASSESSMENT AND SHE SAID SHE IS READY TO START TTRYING TO WALK SHE WANTS DISCHARGED TODAY
--- NOTE | 2019-05-07 08:30 | NUR ---
0830 PT/OT CONSULT PT AND OT HERE TO EVALUATE PT. [id number] PT STATES PUTTING IN REFERRAL FOR INPATIENT TRATMENT OT DOING SAME WELL DR VENTURA UPDATED AND I WAS TOLD DR FISHER WOULD ROUND AND CONSULT TREATMENT
--- NOTE | 2019-05-07 14:53 | NUR ---
Dr pineda in room
--- NOTE | 2019-05-07 15:29 | NUR ---
DR FISHER DISCUSSING CARE AND IMPORTANCE OF STAYING FOR LAB WORK AND MONITORING PT INSISTANT ON GETTING TO [facility] TO BE WITH BABY, EXPLAINED TO PT THAT AT THIS TIME WE NEED TO MONITOR AND COLLECT LABS BUT YOU ALWAYS HAS OPTION TO LEAVE AMA. PT AGREEING TO STAY FOR TESTS BUT PRETTY ADAMENT ON GOING [place] TO [facility] TOMORROW. PT ADMITTS SHE IS VERY DEPRESSED AND JUST NEEDS TO GET TO HER BABY. DR FISHER COMPLETED FULL ASSESSMENT AND PT SEEMS TO BE GETTING STRONGER. PT FEELING OK ABOUT CONVERSATION WITH DR FISHER
--- NOTE | 2019-05-07 16:06 | NUR ---
PROGRESS PT HAD A FEW QUESTIONS BUT ALL IN ALL IS HAPPY WITH DR FISHER TREATMENT PLAN PT IS FACETIMING BABY WHICH IS HELPING WITH HER DEPRESSION FROM NB SEPERATION
--- NOTE | 2019-05-07 16:30 | NUR ---
KINZA Hart, RN TISSUE RECOVERY TECHNICIAN HERE TO DISCUSS WITH PT AND FAMILY OPTIONS REGARDING PT/OT THERAPY AND DIFFERENT PLACES SHE CAN RECIEVE THESE SERVICES. PT AND FAMILY UNHAPPY AND FRUSTRATED THAT ONLY OPTIONS ARE 1. GO TO [facility] OR [facility] FOR REHAB 2. GO TO [facility] IN [place] AND RECIEVE PT/OT 3. GO HOME AND HAVE PT/OT THERAPISTS WORK IN HOME WITH HER ONCE-TWICE A WEEK 4. BE ACCEPTED TO AN INTENSIVE REHAB FACILITY OUTSIDE OF THE AREA ([place]/[facility]). PT DECLINES THAT RN TISSUE RECOVERY TECHNICIAN SENDS UP REFERRAL PACKET TO INTENSIVE REHAB CENTER. PT AND FAMILY REQUESTING THEY HAVE MORE TIME TO THINK ABOUT THEIR OPTIONS. RN TISSUE RECOVERY TECHNICIAN TO COME BACK AT 10AM AND TALK TO PT AND FAMILY.
--- NOTE | 2019-05-08 02:00 | NUR ---
PATIENT VERBALIZED DESIRE TO WORK WITH PT TODAY IN HOPES OF IMPORVING HER MOBILITY WILL EXPIDITE HER DISCHARGE TO HOME. 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 REMINDED PATIENT THAT SHE MUST VERBALIZE HER FEARS, GOALS TO REGAIN HER ABILITY TO AMBULATE WELL HER STRONG MOTIVATION TO DO SO WHEN PHYSICIAN ROUNDING OCCURS. PATIENT VERBALIZES UNDERSTANDING.
[2019-05-08 06:18] LABS: Hematocrit 29.8 % (33.0-51.0); Hemoglobin 9.9 g/dL (11.5-16.0); Mean Corpuscular HGB Conc 33.2 g/dL (31.5-36.5); Mean Corpuscular Volume 90 fL (80-100); Mean Platelet Volume 11.1 fL (9.1-12.4); NRBC ABSOLUTE 0.03 K/mm3 (0.00-0.02); NRBC Auto 0.6 /100 WBC (0.0-0.2); Platelet Count 117 K/mm3 (150-400); RDW Coefficient Variation 14.4 % (11.7-14.2); RDW Standard Deviation 46.9 fL (35.1-46.3); White Blood Cell Count 4.85 K/mm3 (4.00-11.30)
[2019-05-08 06:33] LABS: Albumin, Blood 1.9 g/dL (3.4-5.0); Anion Gap 8 mmol/L (6-16); Blood Urea Nitrogen 9 mg/dL (8-24); Bun/Creatinine Ratio 24.3 (12.0-20.0); C-REACTIVE PROTEIN, EXT RANGE 0.692 mg/dL (0.000-0.300); CO2, Blood 24 mmol/L (21-32); Calcium, Blood 8.2 mg/dL (8.5-10.1); Chloride, Blood 107 mmol/L (98-108); Creatinine, Blood 0.37 mg/dL (0.40-1.00); Glomerular Filtration Rate >60 (60-); Glucose, Blood 102 mg/dL (70-99); Magnesium, Blood 1.7 mg/dL (1.6-2.4); Phosphorus, Blood 3.3 mg/dL (2.5-4.9); Potassium, Blood 3.7 mmol/L (3.5-5.5); Sodium, Blood 139 mmol/L (136-145)
[2019-05-08 06:36] LABS: CPK Creatine Kinase 85 U/L (26-193)
[2019-05-08 06:37] LABS: Creatine Kinase MB <1.0 ng/mL (0.0-3.6); Creatine Kinase MB Index Unable to Calculate (0.0-4.0)
[2019-05-08 07:16] LABS: BAND PERCENT MAN 1 % (0-8); BASOPHILS ABSOLUTE MAN 0.04 K/mm3 (0.00-0.23); BASOPHILS PERCENT MAN 1 % (0-2); EOSINOPHILS PERCENT MAN 0 % (0-6); LYMPHOCYTES ABSOLUTE MAN 2.08 K/mm3 (0.84-5.20); LYMPHOCYTES PERCENT MAN 43 % (21-46); METAMYELOCYTE ABSOLUTE MAN 0.14 K/mm3 (0.00-0.00); METAMYELOCYTE PERCENT MAN 3 % (0-0); MONOCYTES ABSOLUTE MAN 0.38 K/mm3 (0.16-1.47); MONOCYTES PERCENT MAN 8 % (4-13); MYELOCYTE ABSOLUTE MAN 0.24 K/mm3 (0.00-0.00); MYELOCYTE PERCENT MAN 5 % (0-0); NEUTROPHILS ABSOLUTE MAN 1.94 K/mm3 (1.96-9.15); SEG NEUTROPHILS PERCENT MAN 39 % (41-73); TOTAL CELLS COUNTED 100
--- NOTE | 2019-05-08 07:59 | NUR ---
DR VENTURA HERE IN ROOM MY PT ASSESSMENT IS UNCHANGED FROM YESTERDAY AY 1530 PT CONT TO HAVE MORE WEAKNESS TO LEFT SIDE THEN RIGHT CONT BILAT FOOT DROP PT HAS SPEECH ISSUES WELL. PT ALSO INFORMED ME SHE HAS NOT HAD A BM FOR 7 DAYS AND THAT SHE ALSO FORGOT TO MENTION SHE HAS AN BREAST IMPLANT IN LEFT SIDE X 10 YEARS THAT IS FILLED WITH SILICONE THAT SHE WAS TOLD WOULD NEED TO BE REPLACED AT 10 YR LUPILLO. VSS PT STILL LISTING TO RT SIDE WITH RT FACIAL SWELLING AND NUMBNESS RT HAND HAS MORE CORDINATION THEN LEFT HAND. STRENGHTH SEEMS FAIRLY EQUAL STUDENT WORKER SLIGHT DIFFERENCE WITH LEFT HAND PT ALSO CANNOT BED KNEES BILAT. PT CAN RAISE LEGS OFF BED JUST WEAK PT STILL AT THIS TIME DOES NOT FEEL LIKE SHE CAN DO AN MRI BUT IS THINKING ABOUT IT
--- NOTE | 2019-05-08 10:40 | NUR ---
RN TIRE RECAPPER HERE WITH PATIENT DISCUSSING IN PATIENT TREATMENT AND REHAB. PT AND FAMILY CHOOSING TO BRING HOME HEALTH IN AND TO BE DCD HOME. PATIENT STATES I JUST WANT TO BE WITH MY BABY
--- NOTE | 2019-05-08 11:54 | NUR ---
PT AND OT THERAPY PT AND OT WORKING WITH PT NOW
--- NOTE | 2019-05-08 14:35 | NUR ---
DR REDDY OFFICE CALLED BACK AND STATES THEY ARE NOT ACCEPTING ANY REFERRALS OR CONSULTS TO HOSPITAL.
--- NOTE | 2019-05-08 16:15 | NUR ---
UPDATE PT FAMILY CALLED STATES IGGY CAN FEEL HER FEET THEY ARE BURNING, I WAS EXAMINING IGGY SHE WAS SITTING UP STRAIGHT NO LISTING, TALKING CLEARER AND HAD MORE STRENGTH BILAT IN LEGS AND FEET PT COULD FEEL MY TOUCH ON BOTH FEET WHERE BEFORE THERE WAS NO FEELING PT FAMILY STATES SHE ALL OF A SUDDEN STARTED TALKING CLEARER AFTER SHE COMPLAINED OF BURNING AND PAIN IN BILAT FEET AND LEGS
--- NOTE | 2019-05-08 17:18 | NUR ---
PT TRANSFERED TO ROOM 209 REPORT TO DWAIN RACHEL
--- NOTE | 2019-05-08 19:27 | NUR ---
TRANSFER: REPORT RECIEVED FROM FBP RN. PT TO UNIT AT ABOUT 1730. UPON ASSESSMENT PT IS A/O. SURGICAL SITE WNL. CONTINUES TO HAVE ENABLITY TO MOVE LEGS, ONLY WIGGLES TOES. REPORTS "BURNING" TO ANKLES AND FEET. PULSES PALPABLE. R ARM IS STRONGER THAN LEFT. PUPILS ARE WNL. PT TURNED AND HELPED ONTO BEDPAN. DENIES PAIN, CALL LIGHT IN REACH, WILL CTM.
--- NOTE | 2019-05-09 04:32 | NUR ---
SHIFT SUMMARY ALERT AND ORIENTED. PATIENT ANSWERING IN SHORT RESPONSES, BUT ANSWERING APPROPRIATLY. BILATERAL DEFICIT MORE PRONOUNCED ON THE RIGHT SIDE. PT AND FAMILY REPORTED SOME DIFFICULTY WITH EATING DURING THE EARLY PART OF THE SHIFT. PATIENT HAS BEEN CALLING APPROPRIATLY FOR BED HUTCHINSON, HAD ONE INC VOID AT BEGINNNIG OF SHIFT. REPORTS NO ISSUES WITH VISION. PATIENT LEANING TO THE RIGHT HEAVILY DURING SHIFT, MULTIPLE PILLOWS IN PLACE TO HELP MAINTAIN BODY POSITION. DENIES PAIN DURING SHIFT, SAYS BURNING IN FEET IS GONE. DENIED NAUSEA. SMALL AMOUNT RED VAGINAL DRAINAGE.
[2019-05-09 06:34] LABS: Hematocrit 28.7 % (33.0-51.0); Hemoglobin 9.3 g/dL (11.5-16.0); Mean Corpuscular HGB 29.7 pg (26.0-34.0); Mean Corpuscular HGB Conc 32.4 g/dL (31.5-36.5); Mean Corpuscular Volume 92 fL (80-100); Mean Platelet Volume 10.9 fL (9.1-12.4); NRBC ABSOLUTE 0.03 K/mm3 (0.00-0.02); NRBC Auto 0.7 /100 WBC (0.0-0.2); Platelet Count 121 K/mm3 (150-400); RDW Coefficient Variation 14.5 % (11.7-14.2); RDW Standard Deviation 48.1 fL (35.1-46.3); Red Blood Cell Count 3.13 M/mm3 (3.80-5.20); White Blood Cell Count 4.61 K/mm3 (4.00-11.30)
[2019-05-09 07:00] LABS: BAND PERCENT MAN 4 % (0-8); BASOPHILS PERCENT MAN 0 % (0-2); EOSINOPHILS PERCENT MAN 0 % (0-6); LYMPHOCYTES ABSOLUTE MAN 1.75 K/mm3 (0.84-5.20); LYMPHOCYTES PERCENT MAN 38 % (21-46); METAMYELOCYTE ABSOLUTE MAN 0.27 K/mm3 (0.00-0.00); METAMYELOCYTE PERCENT MAN 6 % (0-0); MONOCYTES ABSOLUTE MAN 0.55 K/mm3 (0.16-1.47); MONOCYTES PERCENT MAN 12 % (4-13); MYELOCYTE ABSOLUTE MAN 0.04 K/mm3 (0.00-0.00); MYELOCYTE PERCENT MAN 1 % (0-0); NEUTROPHILS ABSOLUTE MAN 1.98 K/mm3 (1.96-9.15); SEG NEUTROPHILS PERCENT MAN 39 % (41-73); TOTAL CELLS COUNTED 100
[2019-05-09 11:03] LABS: Alanine Aminotransfer (ALT/SGP 59 U/L (12-78); Albumin/Globulin Ratio 0.6 (0.8-1.8); Alk Phos 154 U/L (50-136); Anion Gap 4 mmol/L (6-16); Aspartate Aminotrans (AST/SGOT 64 U/L (12-37); Bilirubin, Total 0.6 mg/dL (0.1-1.0); Blood Urea Nitrogen 10 mg/dL (8-24); Bun/Creatinine Ratio 25.7 (12.0-20.0); CO2, Blood 25 mmol/L (21-32); Calcium, Blood 8.4 mg/dL (8.5-10.1); Chloride, Blood 109 mmol/L (98-108); Creatinine, Blood 0.39 mg/dL (0.40-1.00); Globulin, Blood 3.2 g/dL (2.2-4.0); Glomerular Filtration Rate >60 (60-); Glucose, Blood 94 mg/dL (70-99); Potassium, Blood 4.1 mmol/L (3.5-5.5); Sodium, Blood 138 mmol/L (136-145); Total Protein, Blood 5.2 g/dL (6.4-8.2)
--- NOTE | 2019-05-09 12:33 | NUR ---
MESSAGE LEFT WITH DR. REDDY OFFICE AT THIS TIME TO INQUIRE ABOUT NEURO CONSULT. WILL AWAIT CALL BACK
--- NOTE | 2019-05-09 14:50 | NUR ---
SPOKE WITH AIRLINE ATTENDANT AT DR. REDDY'S OFFICE. DR. REDDY IS NOT TAKING CONSULTS AT THIS TIME, AVALIBLE TO TAKE CONSULTS ON May. DR. SANCHEZ NOTIFIED OF THIS. WILL CONTINUE WITH PLAN OF MRI TOMORROW. NO NEW ORDERS.
[2019-05-09 16:06] LABS: SJOGREN'S ANTI-SS-A <0.2 AI (0.0-0.9); SJOGREN'S ANTI-SS-B <0.2 AI (0.0-0.9)
--- NOTE | 2019-05-09 19:21 | NUR ---
SUMMARY: NO ACUTE CHANGE TODAY. PT IS A/O, NO ACUTE CHANGE IN NEUROLOGIC STATUS. VSS. PT FATHER NOTED TO THIS RN THAT PT WHOLE BODY TWITCHES AT TIMES WHILE SHE IS SLEEPING, NO S/SX OF SEIZURE, PT AWAKENS EASILY FROM SLEEP. BOTH DR. FISHER AND DR. VENTURA ARE AWARE OF THIS. PT ABLE TO WORK WITH PT/OT, TOOLS TO HELP PT EAT ARE AT BEDSIDE. PT MOM AND DAD ARE ATTENTIVE TO PT. PLAN FOR NPO AT 0000 AND MRI TOMORROW, REPORT GIVEN TO NOC WILSON THOMASON.
[2019-05-10 04:49] LABS: Hematocrit 30.1 % (33.0-51.0); Hemoglobin 9.8 g/dL (11.5-16.0); Mean Corpuscular HGB 29.7 pg (26.0-34.0); Mean Corpuscular HGB Conc 32.6 g/dL (31.5-36.5); Mean Corpuscular Volume 91 fL (80-100); Mean Platelet Volume 10.5 fL (9.1-12.4); NRBC ABSOLUTE 0.04 K/mm3 (0.00-0.02); NRBC Auto 0.6 /100 WBC (0.0-0.2); Platelet Count 171 K/mm3 (150-400); RDW Coefficient Variation 14.6 % (11.7-14.2); RDW Standard Deviation 47.8 fL (35.1-46.3); White Blood Cell Count 6.31 K/mm3 (4.00-11.30)
[2019-05-10 05:12] LABS: Anion Gap 6 mmol/L (6-16); Blood Urea Nitrogen 10 mg/dL (8-24); Bun/Creatinine Ratio 27.5 (12.0-20.0); CO2, Blood 26 mmol/L (21-32); Calcium, Blood 8.6 mg/dL (8.5-10.1); Chloride, Blood 106 mmol/L (98-108); Creatinine, Blood 0.36 mg/dL (0.40-1.00); Glomerular Filtration Rate >60 (60-); Glucose, Blood 85 mg/dL (70-99); Potassium, Blood 4.2 mmol/L (3.5-5.5); Sodium, Blood 138 mmol/L (136-145)
--- NOTE | 2019-05-10 05:19 | NUR ---
SHIFT SUMMARY PT ALERT AND ORIENTED, VERY TIRED DURING SHIFT WAS ABLE TO GET SLEEP TONIGHT PER PT. ROM DONE WITH PATIENT, SHE WAS ABLE TO HELP. CONT OF BLADDER DURING SHIFT, DENIED PAIN. NOTICED SOME SMALL TREMORS WHILE SLEEPING. PT ANXIOUS R/T MRI IN AM, DISCUSSED WITH PT AND FAMILY IMPORTANCE OF MRI AND ADRESSED SOME ANXIETY. PT CALLING APPROPRIATLY, STILL SHOWING WEAKNESS. IN EXTREMETIES. PLAN IS FOR MRI TODAY.
[2019-05-10 06:02] LABS: BAND PERCENT MAN 5 % (0-8); BASOPHILS PERCENT MAN 0 % (0-2); EOSINOPHILS ABSOLUTE MAN 0.06 K/mm3 (0.00-0.68); EOSINOPHILS PERCENT MAN 1 % (0-6); LYMPHOCYTES ABSOLUTE MAN 1.64 K/mm3 (0.84-5.20); LYMPHOCYTES PERCENT MAN 26 % (21-46); METAMYELOCYTE ABSOLUTE MAN 0.31 K/mm3 (0.00-0.00); METAMYELOCYTE PERCENT MAN 5 % (0-0); MONOCYTES ABSOLUTE MAN 0.25 K/mm3 (0.16-1.47); MONOCYTES PERCENT MAN 4 % (4-13); MYELOCYTE ABSOLUTE MAN 0.37 K/mm3 (0.00-0.00); MYELOCYTE PERCENT MAN 6 % (0-0); NEUTROPHILS ABSOLUTE MAN 3.65 K/mm3 (1.96-9.15); SEG NEUTROPHILS PERCENT MAN 53 % (41-73); TOTAL CELLS COUNTED 100
--- NOTE | 2019-05-10 10:13 | NUR ---
1010 TO MRI PER BED
--- NOTE | 2019-05-10 10:49 | NUR ---
RETURN TO ROOM FROM MRI, PT STATES SHE DID WELL DURING MRI
--- NOTE | 2019-05-10 14:42 | NUR ---
report phoned to zari freeman rn at [facility]. transport arranged via [employer]. patient and her father agree to transfer and signed consent for transfer
--- NOTE | 2019-05-10 15:08 | NUR ---
1440 DISCHARGED WITH [facility] STAFF TO BE TRANSPORTED TO [facility]. PATIENTS MOTHER AND FATHER PRESENT AT TIME OF TRANSFER
[2019-05-11 15:06] LABS: ANA DIRECT Negative (Negative); ANTIMYELOPEROXIDASE (MPO) ABS <9.0 U/mL (0.0-9.0); ANTIPROTEINASE 3 (PR-3) ABS <3.5 U/mL (0.0-3.5); ATYPICAL PANCA <1:20 titer (Neg:<1:20); CYTOPLASMIC (C-ANCA) <1:20 titer (Neg:<1:20); PERINUCLEAR (P-ANCA) <1:20 titer (Neg:<1:20)
== END 2019-05-10 14:40 | disposition short-term general hospital (02) | DRG 776 ==
LOC: ER 03:14 → SURS 05:43 → BC 05:43 → SURS 05-08 16:49
PROVIDERS: Emergency Medicine; Family Medicine; Internal Medicine Endocrinology, Diabetes & Metabolism; Specialist; ADMIT Obstetrics & Gynecology
DX: O14.95 Unspecified pre-eclampsia, complicating the puerperium (principal); N39.0 Urinary tract infection, site not specified; H55.09 Other forms of nystagmus; E87.6 Hypokalemia; E83.42 Hypomagnesemia; E88.09 Other disorders of plasma-protein metabolism, not elsewhere classified; R11.10 Vomiting, unspecified; E66.9 Obesity, unspecified; M21.371 Foot drop, right foot; M21.372 Foot drop, left foot; Z98.82 Breast implant status; R29.818 Other symptoms and signs involving the nervous system
CPT/HCPCS: 36415; 70450; 70496; 70551; 71046; 72131; 80048; 80053; 80069; 81001; 82024; 82533; 82550; 82553; 83519; 83520; 83735; 84439; 84443; 84484; 85025; 85651; 86140; 86235; 86256; 86850; 86900; 86901; 87077; 87086; 87186; 96361; 96365; 96375; 97110; 97162; 97166; 97530; 97535; 99285-25; C9113; J0610; J0696; J1170; J1200; J1885; J2060; J2405; J3475; J3480; J7030; J7120; J7509; Q9967

== ENCOUNTER 2021-08-04 09:39 | Observation (INO) | payer OTHER ==
[~2021-08-04] VITALS: Ht 157.5 cm; Wt 122.0 kg
[~2021-08-04 09:39] MED LIST changes: +PERCOCET
[2021-08-04 10:45] LABS: Alanine Aminotransfer (ALT/SGP 72 U/L (12-78); Albumin, Blood 3.9 g/dL (3.4-5.0); Albumin/Globulin Ratio 0.9 (0.8-1.8); Alk Phos 57 U/L (50-136); Anion Gap 20 mmol/L (6-16); Aspartate Aminotrans (AST/SGOT 41 U/L (12-37); Bilirubin, Total 1.2 mg/dL (0.1-1.0); Blood Urea Nitrogen 11 mg/dL (8-24); Bun/Creatinine Ratio 14.2 (12.0-20.0); CO2, Blood 20 mmol/L (21-32); Calcium, Blood 9.5 mg/dL (8.5-10.1); Chloride, Blood 93 mmol/L (98-108); Creatinine, Blood 0.78 mg/dL (0.40-1.00); Globulin, Blood 4.2 g/dL (2.2-4.0); Glomerular Filtration Rate >60 (60-); Glucose, Blood 131 mg/dL (70-99); Potassium, Blood 2.7 mmol/L (3.5-5.5); Sodium, Blood 133 mmol/L (136-145); Total Protein, Blood 8.1 g/dL (6.4-8.2)
[2021-08-04 11:04] LABS: BASOPHILS ABSOLUTE AUTO 0.05 K/mm3 (0.00-0.23); BASOPHILS PERCENT AUTO 0 % (0-2); EOSINOPHILS ABSOLUTE AUTO 0.01 K/mm3 (0.00-0.68); EOSINOPHILS PERCENT AUTO 0 % (0-6); Hematocrit 40.2 % (33.0-51.0); Hemoglobin 14.8 g/dL (11.5-16.0); IMMATURE GRAN ABSOLUTE AUTO 0.08 K/mm3 (0.00-0.10); IMMATURE GRAN PERCENT AUTO 1 % (0-1); LYMPHOCYTES ABSOLUTE AUTO 1.22 K/mm3 (0.84-5.20); LYMPHOCYTES PERCENT AUTO 7 % (21-46); MONOCYTES PERCENT AUTO 6 % (4-13); Mean Corpuscular HGB 31.2 pg (26.0-34.0); Mean Corpuscular HGB Conc 36.8 g/dL (31.5-36.5); Mean Corpuscular Volume 85 fL (80-100); NEUTROPHILS ABSOLUTE AUTO 14.13 K/mm3 (1.96-9.15); NEUTROPHILS PERCENT AUTO 86 % (41-73); RDW Coefficient Variation 13.9 % (11.7-14.2); RDW Standard Deviation 42.5 fL (35.1-46.3); Red Blood Cell Count 4.75 M/mm3 (3.80-5.20); White Blood Cell Count 16.39 K/mm3 (4.00-11.30)
[2021-08-04 11:13] LABS: Platelet Count 239 K/mm3 (150-400)
[2021-08-04] MEDS ORDERED: PRENATAL TABLE1 EAC2 PO (14:28)
[2021-08-04] MEDS ORDERED: GABA100 PO (14:28)
[2021-08-04 16:44] LABS: Influenza A, PCR NEGATIVE (NEGATIVE); Influenza B, PCR NEGATIVE (NEGATIVE); Resp Syncytial Virus, PCR NEGATIVE (NEGATIVE); SARS-Cov-2 (COVID-19) PCR, MMC NEGATIVE (NEGATIVE)
[2021-08-04 21:13] LABS: Alanine Aminotransfer (ALT/SGP 58 U/L (12-78); Albumin, Blood 3.1 g/dL (3.4-5.0); Albumin/Globulin Ratio 0.9 (0.8-1.8); Alk Phos 48 U/L (50-136); Anion Gap 9 mmol/L (6-16); Aspartate Aminotrans (AST/SGOT 33 U/L (12-37); Bilirubin, Total 1.2 mg/dL (0.1-1.0); Blood Urea Nitrogen 6 mg/dL (8-24); Bun/Creatinine Ratio 9.3 (12.0-20.0); CO2, Blood 26 mmol/L (21-32); Calcium, Blood 8.4 mg/dL (8.5-10.1); Chloride, Blood 99 mmol/L (98-108); Creatinine, Blood 0.64 mg/dL (0.40-1.00); Globulin, Blood 3.5 g/dL (2.2-4.0); Glomerular Filtration Rate >60 (60-); Glucose, Blood 107 mg/dL (70-99); Magnesium, Blood 2.5 mg/dL (1.6-2.4); Potassium, Blood 2.7 mmol/L (3.5-5.5); Sodium, Blood 134 mmol/L (136-145); Total Protein, Blood 6.6 g/dL (6.4-8.2)
[2021-08-05 03:13] LABS: Alanine Aminotransfer (ALT/SGP 62 U/L (12-78); Albumin, Blood 3.1 g/dL (3.4-5.0); Albumin/Globulin Ratio 0.9 (0.8-1.8); Alk Phos 46 U/L (50-136); Anion Gap 13 mmol/L (6-16); Aspartate Aminotrans (AST/SGOT 34 U/L (12-37); Bilirubin, Total 1.4 mg/dL (0.1-1.0); Blood Urea Nitrogen 6 mg/dL (8-24); Bun/Creatinine Ratio 11.3 (12.0-20.0); CO2, Blood 22 mmol/L (21-32); Calcium, Blood 8.6 mg/dL (8.5-10.1); Chloride, Blood 100 mmol/L (98-108); Creatinine, Blood 0.53 mg/dL (0.40-1.00); Globulin, Blood 3.4 g/dL (2.2-4.0); Glomerular Filtration Rate >60 (60-); Glucose, Blood 104 mg/dL (70-99); Potassium, Blood 2.9 mmol/L (3.5-5.5); Sodium, Blood 135 mmol/L (136-145); Total Protein, Blood 6.5 g/dL (6.4-8.2)
[2021-08-05 09:44] LABS: Alanine Aminotransfer (ALT/SGP 64 U/L (12-78); Albumin, Blood 3.2 g/dL (3.4-5.0); Albumin/Globulin Ratio 0.9 (0.8-1.8); Alk Phos 52 U/L (50-136); Anion Gap 10 mmol/L (6-16); Aspartate Aminotrans (AST/SGOT 42 U/L (12-37); Bilirubin, Total 1.6 mg/dL (0.1-1.0); Blood Urea Nitrogen 6 mg/dL (8-24); CO2, Blood 22 mmol/L (21-32); Calcium, Blood 8.8 mg/dL (8.5-10.1); Chloride, Blood 101 mmol/L (98-108); Globulin, Blood 3.6 g/dL (2.2-4.0); Glomerular Filtration Rate >60 (60-); Glucose, Blood 106 mg/dL (70-99); Sodium, Blood 133 mmol/L (136-145); Total Protein, Blood 6.8 g/dL (6.4-8.2)
[2021-08-05 15:26] LABS: Source, Urine Clean Catch
[2021-08-05 15:36] LABS: Appearance, Urine Turbid (Clear); Blood, Urine Neg (Neg); Color, Urine Amber (P-Yellow); Glucose Qualitative, Urine Neg (Neg); Ketones, Urine 4+ (Neg); Leukocyte Esterase, Urine 1+ (Neg); Nitrite, Urine Neg (Neg); Protein, Urine 2+ (Neg); Urobilinogen, Urine 3+ (Normal); pH, Urine 6.5 (5.0-8.0)
[2021-08-05 15:58] LABS: Bilirubin, Urine 2+ (Neg)
[2021-08-05 16:03] LABS: Mucus Mod (0-Heavy)
[2021-08-05 16:08] LABS: Bacteria Mod /hpf; Red Blood Cells, Urine 0-2 /hpf (0-2); Squamous Epithelial Cells Mod /hpf (Few); Transitional Epithelial Cells Rare /hpf (0-Rare)
[2021-08-05 16:09] LABS: Other Crystals Many /hpf
[2021-08-05 16:38] LABS: Alanine Aminotransfer (ALT/SGP 66 U/L (12-78); Albumin/Globulin Ratio 0.9 (0.8-1.8); Alk Phos 49 U/L (50-136); Anion Gap 8 mmol/L (6-16); Aspartate Aminotrans (AST/SGOT 49 U/L (12-37); Bilirubin, Total 1.6 mg/dL (0.1-1.0); Blood Urea Nitrogen 5 mg/dL (8-24); CO2, Blood 22 mmol/L (21-32); Calcium, Blood 8.8 mg/dL (8.5-10.1); Chloride, Blood 104 mmol/L (98-108); Globulin, Blood 3.2 g/dL (2.2-4.0); Glomerular Filtration Rate >60 (60-); Glucose, Blood 91 mg/dL (70-99); Potassium, Blood 3.3 mmol/L (3.5-5.5); Sodium, Blood 134 mmol/L (136-145); Total Protein, Blood 6.2 g/dL (6.4-8.2)
[2021-08-06 06:18] LABS: Alanine Aminotransfer (ALT/SGP 72 U/L (12-78); Albumin/Globulin Ratio 0.9 (0.8-1.8); Alk Phos 49 U/L (50-136); Anion Gap 8 mmol/L (6-16); Aspartate Aminotrans (AST/SGOT 45 U/L (12-37); Bilirubin, Total 1.4 mg/dL (0.1-1.0); Blood Urea Nitrogen 6 mg/dL (8-24); Bun/Creatinine Ratio 11.4 (12.0-20.0); CO2, Blood 24 mmol/L (21-32); Calcium, Blood 8.7 mg/dL (8.5-10.1); Chloride, Blood 105 mmol/L (98-108); Creatinine, Blood 0.53 mg/dL (0.40-1.00); Globulin, Blood 3.4 g/dL (2.2-4.0); Glomerular Filtration Rate >60 (60-); Glucose, Blood 107 mg/dL (70-99); Potassium, Blood 3.4 mmol/L (3.5-5.5); Sodium, Blood 137 mmol/L (136-145); Total Protein, Blood 6.4 g/dL (6.4-8.2)
[2021-08-06 18:23] LABS: BASOPHILS ABSOLUTE AUTO 0.02 K/mm3 (0.00-0.23); BASOPHILS PERCENT AUTO 0 % (0-2); EOSINOPHILS ABSOLUTE AUTO 0.03 K/mm3 (0.00-0.68); EOSINOPHILS PERCENT AUTO 0 % (0-6); Hematocrit 36.1 % (33.0-51.0); Hemoglobin 12.2 g/dL (11.5-16.0); IMMATURE GRAN ABSOLUTE AUTO 0.05 K/mm3 (0.00-0.10); IMMATURE GRAN PERCENT AUTO 1 % (0-1); LYMPHOCYTES ABSOLUTE AUTO 1.35 K/mm3 (0.84-5.20); LYMPHOCYTES PERCENT AUTO 15 % (21-46); MONOCYTES ABSOLUTE AUTO 0.59 K/mm3 (0.16-1.47); MONOCYTES PERCENT AUTO 6 % (4-13); Mean Corpuscular HGB 30.7 pg (26.0-34.0); Mean Corpuscular HGB Conc 33.8 g/dL (31.5-36.5); Mean Platelet Volume 11.8 fL (9.1-12.4); NEUTROPHILS ABSOLUTE AUTO 7.18 K/mm3 (1.96-9.15); NEUTROPHILS PERCENT AUTO 78 % (41-73); Platelet Count 188 K/mm3 (150-400); RDW Coefficient Variation 14.6 % (11.7-14.2); RDW Standard Deviation 48.8 fL (35.1-46.3); Red Blood Cell Count 3.98 M/mm3 (3.80-5.20); White Blood Cell Count 9.22 K/mm3 (4.00-11.30)
[2021-08-06 18:27] LABS: Mean Corpuscular Volume 91 fL (80-100)
[2021-08-06 18:39] LABS: Alanine Aminotransfer (ALT/SGP 73 U/L (12-78); Albumin, Blood 3.1 g/dL (3.4-5.0); Albumin/Globulin Ratio 0.9 (0.8-1.8); Alk Phos 54 U/L (50-136); Anion Gap 7 mmol/L (6-16); Aspartate Aminotrans (AST/SGOT 41 U/L (12-37); Bilirubin, Total 1.1 mg/dL (0.1-1.0); Blood Urea Nitrogen 6 mg/dL (8-24); Bun/Creatinine Ratio 12.1 (12.0-20.0); CO2, Blood 23 mmol/L (21-32); Calcium, Blood 9.1 mg/dL (8.5-10.1); Chloride, Blood 105 mmol/L (98-108); Globulin, Blood 3.4 g/dL (2.2-4.0); Glomerular Filtration Rate >60 (60-); Glucose, Blood 99 mg/dL (70-99); Potassium, Blood 3.5 mmol/L (3.5-5.5); Sodium, Blood 135 mmol/L (136-145); Total Protein, Blood 6.5 g/dL (6.4-8.2)
[2021-08-06 22:01] LABS: Protein, Urine Random 39.6 mg/dL (0.0-11.9); Protein/Creat Ratio, Ur Random 0.2
[2021-08-07 05:13] LABS: BASOPHILS ABSOLUTE AUTO 0.02 K/mm3 (0.00-0.23); BASOPHILS PERCENT AUTO 0 % (0-2); EOSINOPHILS ABSOLUTE AUTO 0.08 K/mm3 (0.00-0.68); EOSINOPHILS PERCENT AUTO 1 % (0-6); Hematocrit 33.3 % (33.0-51.0); Hemoglobin 11.1 g/dL (11.5-16.0); IMMATURE GRAN ABSOLUTE AUTO 0.05 K/mm3 (0.00-0.10); IMMATURE GRAN PERCENT AUTO 1 % (0-1); LYMPHOCYTES ABSOLUTE AUTO 1.48 K/mm3 (0.84-5.20); LYMPHOCYTES PERCENT AUTO 19 % (21-46); MONOCYTES ABSOLUTE AUTO 0.49 K/mm3 (0.16-1.47); MONOCYTES PERCENT AUTO 6 % (4-13); Mean Corpuscular HGB Conc 33.3 g/dL (31.5-36.5); Mean Corpuscular Volume 93 fL (80-100); NEUTROPHILS ABSOLUTE AUTO 5.66 K/mm3 (1.96-9.15); NEUTROPHILS PERCENT AUTO 73 % (41-73); Platelet Count 172 K/mm3 (150-400); RDW Coefficient Variation 14.6 % (11.7-14.2); RDW Standard Deviation 50.8 fL (35.1-46.3); Red Blood Cell Count 3.58 M/mm3 (3.80-5.20); White Blood Cell Count 7.78 K/mm3 (4.00-11.30)
[2021-08-07 05:32] LABS: Alanine Aminotransfer (ALT/SGP 72 U/L (12-78); Albumin, Blood 2.8 g/dL (3.4-5.0); Albumin/Globulin Ratio 0.9 (0.8-1.8); Alk Phos 47 U/L (50-136); Anion Gap 8 mmol/L (6-16); Aspartate Aminotrans (AST/SGOT 36 U/L (12-37); Bilirubin, Total 0.7 mg/dL (0.1-1.0); Blood Urea Nitrogen 5 mg/dL (8-24); Bun/Creatinine Ratio 9.6 (12.0-20.0); CO2, Blood 24 mmol/L (21-32); Calcium, Blood 8.5 mg/dL (8.5-10.1); Chloride, Blood 106 mmol/L (98-108); Creatinine, Blood 0.52 mg/dL (0.40-1.00); Globulin, Blood 3.1 g/dL (2.2-4.0); Glomerular Filtration Rate >60 (60-); Glucose, Blood 109 mg/dL (70-99); Potassium, Blood 3.1 mmol/L (3.5-5.5); Sodium, Blood 138 mmol/L (136-145); Total Protein, Blood 5.9 g/dL (6.4-8.2)
[2021-08-07 06:01] LABS: Protein, Urine Random 47.3 mg/dL (0.0-11.9); Protein/Creat Ratio, Ur Random 0.2
[2021-08-07] MEDS ORDERED: POTCHL20ER PO (09:53)
== END 2021-08-07 10:30 | disposition home or self-care (01) ==
LOC: ER 09:39 → BC 10:59 → SURS 11:00 → ER 11:00 → SURS 11:00 → BC 17:38
PROVIDERS: Emergency Medicine; Family Medicine; ADMIT Obstetrics & Gynecology
DX: O21.1 Hyperemesis gravidarum with metabolic disturbance (principal); O99.212 Obesity complicating pregnancy, second trimester; E87.6 Hypokalemia; E87.0 Hyperosmolality and hypernatremia; E66.9 Obesity, unspecified; Z3A.20 20 weeks gestation of pregnancy; Z91.013 Allergy to seafood; Z20.822 Contact with and (suspected) exposure to COVID-19
CPT/HCPCS: 0241U; 36415; 80053; 81001; 82310; 82436; 82570; 83735; 84133; 84156; 85025; 87086; 96361; 96374; 96375; 99285-25; A9270; J1200; J1650; J2405; J2550; J3411; J3475; J3480; J7030; J7042; J7120

== ENCOUNTER 2021-09-24 10:33 | Observation (INO) | payer OTHER ==
[~2021-09-24] VITALS: Ht 157.5 cm; Wt 122.0 kg
[~2021-09-24 10:33] MED LIST changes: +GABA100 PO; +PRENATAL TABLE1 EAC2 PO
[2021-09-24 12:43] LABS: BASOPHILS ABSOLUTE AUTO 0.02 K/mm3 (0.00-0.23); BASOPHILS PERCENT AUTO 0 % (0-2); EOSINOPHILS ABSOLUTE AUTO 0.01 K/mm3 (0.00-0.68); EOSINOPHILS PERCENT AUTO 0 % (0-6); Hematocrit 36.1 % (33.0-51.0); Hemoglobin 12.8 g/dL (11.5-16.0); IMMATURE GRAN ABSOLUTE AUTO 0.15 K/mm3 (0.00-0.10); IMMATURE GRAN PERCENT AUTO 1 % (0-1); LYMPHOCYTES ABSOLUTE AUTO 1.37 K/mm3 (0.84-5.20); LYMPHOCYTES PERCENT AUTO 12 % (21-46); MONOCYTES ABSOLUTE AUTO 0.75 K/mm3 (0.16-1.47); MONOCYTES PERCENT AUTO 7 % (4-13); Mean Corpuscular HGB 32.5 pg (26.0-34.0); Mean Corpuscular HGB Conc 35.5 g/dL (31.5-36.5); Mean Corpuscular Volume 92 fL (80-100); Mean Platelet Volume 10.8 fL (9.1-12.4); NEUTROPHILS ABSOLUTE AUTO 9.15 K/mm3 (1.96-9.15); NEUTROPHILS PERCENT AUTO 80 % (41-73); Platelet Count 252 K/mm3 (150-400); RDW Coefficient Variation 15.6 % (11.7-14.2); RDW Standard Deviation 52.4 fL (35.1-46.3); Red Blood Cell Count 3.94 M/mm3 (3.80-5.20); White Blood Cell Count 11.45 K/mm3 (4.00-11.30)
[2021-09-24 13:28] LABS: Albumin, Blood 2.8 g/dL (3.4-5.0); Albumin/Globulin Ratio 0.8 (0.8-1.8); Bilirubin, Total 0.8 mg/dL (0.1-1.0); Bun/Creatinine Ratio 9.9 (12.0-20.0); Creatinine, Blood 0.61 mg/dL (0.40-1.00); Globulin, Blood 3.4 g/dL (2.2-4.0); Potassium, Blood 2.3 mmol/L (3.5-5.5); Total Protein, Blood 6.2 g/dL (6.4-8.2)
[2021-09-24] MEDS ORDERED: CITRULLINE PO (16:00)
[2021-09-24 18:55] LABS: Protein, Urine Random 84.9 mg/dL (0.0-11.9); Protein/Creat Ratio, Ur Random 0.3
[2021-09-24 21:57] LABS: Albumin, Blood 2.7 g/dL (3.4-5.0); Albumin/Globulin Ratio 0.8 (0.8-1.8); Bilirubin, Total 0.9 mg/dL (0.1-1.0); Bun/Creatinine Ratio 9.8 (12.0-20.0); Calcium, Blood 8.4 mg/dL (8.5-10.1); Creatinine, Blood 0.51 mg/dL (0.40-1.00); Globulin, Blood 3.3 g/dL (2.2-4.0); Potassium, Blood 2.3 mmol/L (3.5-5.5)
--- NOTE | 2021-09-24 22:35 | NUR ---
[id number] Rizvi on labs
[2021-09-25 09:14] LABS: BASOPHILS ABSOLUTE AUTO 0.03 K/mm3 (0.00-0.23); BASOPHILS PERCENT AUTO 0 % (0-2); EOSINOPHILS ABSOLUTE AUTO 0.02 K/mm3 (0.00-0.68); EOSINOPHILS PERCENT AUTO 0 % (0-6); Hematocrit 35.3 % (33.0-51.0); IMMATURE GRAN ABSOLUTE AUTO 0.18 K/mm3 (0.00-0.10); IMMATURE GRAN PERCENT AUTO 2 % (0-1); LYMPHOCYTES ABSOLUTE AUTO 1.42 K/mm3 (0.84-5.20); LYMPHOCYTES PERCENT AUTO 14 % (21-46); MONOCYTES PERCENT AUTO 7 % (4-13); Mean Corpuscular HGB 32.3 pg (26.0-34.0); Mean Corpuscular Volume 95 fL (80-100); Mean Platelet Volume 10.9 fL (9.1-12.4); NEUTROPHILS ABSOLUTE AUTO 7.81 K/mm3 (1.96-9.15); NEUTROPHILS PERCENT AUTO 77 % (41-73); Platelet Count 245 K/mm3 (150-400); RDW Standard Deviation 56.1 fL (35.1-46.3); Red Blood Cell Count 3.71 M/mm3 (3.80-5.20); White Blood Cell Count 10.16 K/mm3 (4.00-11.30)
[2021-09-25 09:32] LABS: Albumin, Blood 2.5 g/dL (3.4-5.0); Albumin/Globulin Ratio 0.8 (0.8-1.8); Bilirubin, Total 0.8 mg/dL (0.1-1.0); Bun/Creatinine Ratio 10.2 (12.0-20.0); Calcium, Blood 8.8 mg/dL (8.5-10.1); Creatinine, Blood 0.49 mg/dL (0.40-1.00); Globulin, Blood 3.3 g/dL (2.2-4.0); Potassium, Blood 3.1 mmol/L (3.5-5.5); Total Protein, Blood 5.8 g/dL (6.4-8.2)
[2021-09-25 16:02] LABS: Albumin, Blood 2.5 g/dL (3.4-5.0); Albumin/Globulin Ratio 0.9 (0.8-1.8); Bilirubin, Total 0.8 mg/dL (0.1-1.0); Bun/Creatinine Ratio 8.1 (12.0-20.0); Calcium, Blood 8.6 mg/dL (8.5-10.1); Creatinine, Blood 0.5 mg/dL (0.40-1.00); Globulin, Blood 2.9 g/dL (2.2-4.0); Potassium, Blood 3.4 mmol/L (3.5-5.5); Total Protein, Blood 5.4 g/dL (6.4-8.2)
[2021-09-25 21:23] LABS: BASOPHILS ABSOLUTE AUTO 0.03 K/mm3 (0.00-0.23); BASOPHILS PERCENT AUTO 0 % (0-2); EOSINOPHILS ABSOLUTE AUTO 0.03 K/mm3 (0.00-0.68); EOSINOPHILS PERCENT AUTO 0 % (0-6); Hematocrit 33.5 % (33.0-51.0); Hemoglobin 11.5 g/dL (11.5-16.0); IMMATURE GRAN ABSOLUTE AUTO 0.19 K/mm3 (0.00-0.10); IMMATURE GRAN PERCENT AUTO 2 % (0-1); LYMPHOCYTES ABSOLUTE AUTO 2.18 K/mm3 (0.84-5.20); LYMPHOCYTES PERCENT AUTO 21 % (21-46); MONOCYTES ABSOLUTE AUTO 0.67 K/mm3 (0.16-1.47); MONOCYTES PERCENT AUTO 7 % (4-13); Mean Corpuscular HGB 32.9 pg (26.0-34.0); Mean Corpuscular HGB Conc 34.3 g/dL (31.5-36.5); Mean Corpuscular Volume 96 fL (80-100); Mean Platelet Volume 10.9 fL (9.1-12.4); NEUTROPHILS ABSOLUTE AUTO 7.26 K/mm3 (1.96-9.15); NEUTROPHILS PERCENT AUTO 70 % (41-73); Platelet Count 228 K/mm3 (150-400); RDW Coefficient Variation 16.2 % (11.7-14.2); RDW Standard Deviation 56.5 fL (35.1-46.3); White Blood Cell Count 10.36 K/mm3 (4.00-11.30)
[2021-09-25 21:41] LABS: Albumin, Blood 2.4 g/dL (3.4-5.0); Albumin/Globulin Ratio 0.8 (0.8-1.8); Bilirubin, Total 0.8 mg/dL (0.1-1.0); Bun/Creatinine Ratio 8.8 (12.0-20.0); Calcium, Blood 8.5 mg/dL (8.5-10.1); Creatinine, Blood 0.46 mg/dL (0.40-1.00); Globulin, Blood 3.1 g/dL (2.2-4.0); Potassium, Blood 3.6 mmol/L (3.5-5.5); Total Protein, Blood 5.5 g/dL (6.4-8.2)
[2021-09-26 05:18] LABS: BASOPHILS ABSOLUTE AUTO 0.02 K/mm3 (0.00-0.23); BASOPHILS PERCENT AUTO 0 % (0-2); EOSINOPHILS ABSOLUTE AUTO 0.06 K/mm3 (0.00-0.68); EOSINOPHILS PERCENT AUTO 1 % (0-6); IMMATURE GRAN ABSOLUTE AUTO 0.13 K/mm3 (0.00-0.10); IMMATURE GRAN PERCENT AUTO 2 % (0-1); LYMPHOCYTES ABSOLUTE AUTO 1.69 K/mm3 (0.84-5.20); LYMPHOCYTES PERCENT AUTO 20 % (21-46); MONOCYTES ABSOLUTE AUTO 0.62 K/mm3 (0.16-1.47); MONOCYTES PERCENT AUTO 7 % (4-13); Mean Corpuscular HGB 32.4 pg (26.0-34.0); Mean Corpuscular HGB Conc 33.3 g/dL (31.5-36.5); Mean Corpuscular Volume 97 fL (80-100); NEUTROPHILS ABSOLUTE AUTO 5.83 K/mm3 (1.96-9.15); NEUTROPHILS PERCENT AUTO 70 % (41-73); Platelet Count 209 K/mm3 (150-400); RDW Coefficient Variation 16.2 % (11.7-14.2); RDW Standard Deviation 58.6 fL (35.1-46.3); Red Blood Cell Count 3.39 M/mm3 (3.80-5.20); White Blood Cell Count 8.35 K/mm3 (4.00-11.30)
--- NOTE | 2021-09-26 05:34 | NUR ---
PT HAS BEEN ASKED BY THIS RN MULTIPLE TIMES IF SHE NEEDED TO VOID. PT CONTINUES TO DECLINE. PT HAS YET TO VOID THIS SHIFT.
[2021-09-26 05:37] LABS: Albumin, Blood 2.2 g/dL (3.4-5.0); Albumin/Globulin Ratio 0.7 (0.8-1.8); Bilirubin, Total 0.7 mg/dL (0.1-1.0); Bun/Creatinine Ratio 3.9 (12.0-20.0); Calcium, Blood 8.5 mg/dL (8.5-10.1); Creatinine, Blood 0.51 mg/dL (0.40-1.00); Globulin, Blood 3.1 g/dL (2.2-4.0); Potassium, Blood 3.1 mmol/L (3.5-5.5); Total Protein, Blood 5.3 g/dL (6.4-8.2)
--- NOTE | 2021-09-26 06:38 | NUR ---
PT CONTINUES TO DECLINE GETTING UP TO VOID. THIS RN EXPRESSED CONCERN FOR LACK OF URINE OUT PUT POSSIBLY LEADING TO FURTHER CONPLICATIONS. PT STATES THAT SHE WANTS TO WAIT FOR HER NAUSEA MEDS TO KICK IN PRIOR TO GETTING UP. PT HAS HAD NAUSEA THE MAJORITY OF THE SHIFT. NO SIGNIFICANT EMISIS SEEN. PT WILL GAG AND SPIT SMALL AMOUNT OF WHITE FROTHY SPIT INTO AN EMISIS BAG. PT ONLY SIPPING ON SMALL AMOUNTS OF FLUIDS.
--- NOTE | 2021-09-26 08:18 | NUR ---
CALLED DR. CASTRO TO UPDATE HER ON PT. NOTIFIED OF CHANGE MADE TO IVF OVERNIGHT AND LAB RESULTS THIS AM. NEW ORDERS FOR 40 KCL IV NOW AND 40 PO BID. ALSO UPDATED ON PT'S MINIMAL URINE OUTPUT AND IMBALANCED I&O, NO NEW ORDERS GIVEN R/T THIS. ALSO NOTIFIED THAT PT NEEDS TO BE SEEN AND WILL HAVE TO BE ADMITTED IF SHE IS TO STAY ANOTHER DAY. DR. CASTRO STATES SHE WILL BE IN AFTER A BIT.
[2021-09-26 15:19] LABS: BASOPHILS ABSOLUTE AUTO 0.03 K/mm3 (0.00-0.23); BASOPHILS PERCENT AUTO 0 % (0-2); EOSINOPHILS ABSOLUTE AUTO 0.06 K/mm3 (0.00-0.68); EOSINOPHILS PERCENT AUTO 1 % (0-6); Hematocrit 32.5 % (33.0-51.0); Hemoglobin 10.6 g/dL (11.5-16.0); IMMATURE GRAN ABSOLUTE AUTO 0.14 K/mm3 (0.00-0.10); IMMATURE GRAN PERCENT AUTO 2 % (0-1); LYMPHOCYTES ABSOLUTE AUTO 1.52 K/mm3 (0.84-5.20); LYMPHOCYTES PERCENT AUTO 19 % (21-46); MONOCYTES ABSOLUTE AUTO 0.55 K/mm3 (0.16-1.47); MONOCYTES PERCENT AUTO 7 % (4-13); Mean Corpuscular HGB 32.2 pg (26.0-34.0); Mean Corpuscular HGB Conc 32.6 g/dL (31.5-36.5); Mean Corpuscular Volume 99 fL (80-100); Mean Platelet Volume 11.1 fL (9.1-12.4); NEUTROPHILS ABSOLUTE AUTO 5.59 K/mm3 (1.96-9.15); NEUTROPHILS PERCENT AUTO 71 % (41-73); Platelet Count 198 K/mm3 (150-400); RDW Coefficient Variation 16.4 % (11.7-14.2); RDW Standard Deviation 58.9 fL (35.1-46.3); Red Blood Cell Count 3.29 M/mm3 (3.80-5.20); White Blood Cell Count 7.89 K/mm3 (4.00-11.30)
[2021-09-26 15:35] LABS: Albumin, Blood 2.2 g/dL (3.4-5.0); Albumin/Globulin Ratio 0.8 (0.8-1.8); Bilirubin, Total 0.5 mg/dL (0.1-1.0); Bun/Creatinine Ratio 9.9 (12.0-20.0); Calcium, Blood 8.2 mg/dL (8.5-10.1); Creatinine, Blood 0.41 mg/dL (0.40-1.00); Globulin, Blood 2.9 g/dL (2.2-4.0); Magnesium, Blood 1.7 mg/dL (1.6-2.4); Potassium, Blood 4.2 mmol/L (3.5-5.5); Total Protein, Blood 5.1 g/dL (6.4-8.2)
--- NOTE | 2021-09-26 16:34 | NUR ---
DISCHARGE INSTRUCTIONS, WRITTEN AND VERBAL, GIVEN TO PT AND YULI. POWERGLIDE REMOVED. ALL PERSONAL BELONGINGS RETURNED TO PT. PT TO VOID AND THEN READY FOR DISCHARGE. PT REQUESTING ZOFRAN PRESCRIPTION. DR. CASTRO CALLED AND AWAITING CALL BACK TO CALL INTO PT'S PREFERRED [facility] OF [facility].
--- NOTE | 2021-09-26 16:58 | NUR ---
DISCHARGED HOME WITH VIA AMBULATION
== END 2021-09-26 16:46 | disposition home or self-care (01) ==
LOC: BC 10:33 → OBS 10:33 → BC 10:34 → OBS 14:07 → BC 14:07
PROVIDERS: Family Medicine; ADMIT Obstetrics & Gynecology
DX: O21.0 Mild hyperemesis gravidarum (principal); Z3A.28 28 weeks gestation of pregnancy; Z91.030 Bee allergy status; Z79.899 Other long term (current) drug therapy
CPT/HCPCS: 36415; 80053; 81003; 82150; 82570; 83690; 83735; 84156; 85025; A9270; C1751; C9113; J2405; J2550; J3411; J3475; J3480; J7040; J7042; J7120; J7121

== ENCOUNTER 2021-12-09 05:00 | Inpatient (IN) | payer OTHER ==
[~2021-12-09] VITALS: Ht 157.5 cm; Wt 128.2 kg
[~2021-12-09 05:00] MED LIST changes: +CITRULLINE PO
[2021-12-09] MEDS ORDERED: SERT25 PO (05:10)
[2021-12-09] MEDS ORDERED: ONDA4ODT MM (05:11)
[2021-12-09] MEDS ORDERED: PROMETHAZINE12.5 M1 PO (05:12)
[2021-12-09] MEDS ORDERED: PYRI100 PO (05:13)
[2021-12-09 05:29] LABS: BASOPHILS ABSOLUTE AUTO 0.04 K/mm3 (0.00-0.23); BASOPHILS PERCENT AUTO 0 % (0-2); EOSINOPHILS ABSOLUTE AUTO 0.07 K/mm3 (0.00-0.68); EOSINOPHILS PERCENT AUTO 1 % (0-6); Hematocrit 28.1 % (33.0-51.0); Hemoglobin 9.1 g/dL (11.5-16.0); IMMATURE GRAN ABSOLUTE AUTO 0.18 K/mm3 (0.00-0.10); IMMATURE GRAN PERCENT AUTO 2 % (0-1); LYMPHOCYTES ABSOLUTE AUTO 1.55 K/mm3 (0.84-5.20); LYMPHOCYTES PERCENT AUTO 13 % (21-46); MONOCYTES ABSOLUTE AUTO 0.74 K/mm3 (0.16-1.47); MONOCYTES PERCENT AUTO 6 % (4-13); Mean Corpuscular HGB 28.3 pg (26.0-34.0); Mean Corpuscular HGB Conc 32.4 g/dL (31.5-36.5); Mean Corpuscular Volume 88 fL (80-100); Mean Platelet Volume 10.9 fL (9.1-12.4); NEUTROPHILS ABSOLUTE AUTO 9.48 K/mm3 (1.96-9.15); NEUTROPHILS PERCENT AUTO 79 % (41-73); Platelet Count 280 K/mm3 (150-400); RDW Coefficient Variation 15.6 % (11.7-14.2); RDW Standard Deviation 50.4 fL (35.1-46.3); Red Blood Cell Count 3.21 M/mm3 (3.80-5.20); White Blood Cell Count 12.06 K/mm3 (4.00-11.30)
[2021-12-09 05:55] LABS: Albumin, Blood 2.8 g/dL (3.4-5.0); Albumin/Globulin Ratio 0.8 (0.8-1.8); Bilirubin, Total 0.7 mg/dL (0.1-1.0); Bun/Creatinine Ratio 13.2 (12.0-20.0); Calcium, Blood 8.9 mg/dL (8.5-10.1); Creatinine, Blood 0.38 mg/dL (0.40-1.00); Globulin, Blood 3.6 g/dL (2.2-4.0); Potassium, Blood 3.9 mmol/L (3.5-5.5); Total Protein, Blood 6.4 g/dL (6.4-8.2)
--- NOTE | 2021-12-09 08:26 | NUR ---
12/09/21 0826 Cindy López DELIVERY OF LIVE FEMALE AT 0807 7/8 WEIGHT [id number] [id number]
[2021-12-09 13:22] LABS: BASOPHILS ABSOLUTE AUTO 0.03 K/mm3 (0.00-0.23); BASOPHILS PERCENT AUTO 0 % (0-2); EOSINOPHILS ABSOLUTE AUTO 0.05 K/mm3 (0.00-0.68); EOSINOPHILS PERCENT AUTO 0 % (0-6); Hematocrit 24.9 % (33.0-51.0); Hemoglobin 7.7 g/dL (11.5-16.0); IMMATURE GRAN ABSOLUTE AUTO 0.12 K/mm3 (0.00-0.10); IMMATURE GRAN PERCENT AUTO 1 % (0-1); LYMPHOCYTES ABSOLUTE AUTO 1.22 K/mm3 (0.84-5.20); LYMPHOCYTES PERCENT AUTO 10 % (21-46); MONOCYTES ABSOLUTE AUTO 0.67 K/mm3 (0.16-1.47); MONOCYTES PERCENT AUTO 6 % (4-13); Mean Corpuscular HGB 27.6 pg (26.0-34.0); Mean Corpuscular HGB Conc 30.9 g/dL (31.5-36.5); Mean Corpuscular Volume 89 fL (80-100); Mean Platelet Volume 10.7 fL (9.1-12.4); NEUTROPHILS ABSOLUTE AUTO 10.16 K/mm3 (1.96-9.15); NEUTROPHILS PERCENT AUTO 83 % (41-73); Platelet Count 256 K/mm3 (150-400); RDW Coefficient Variation 15.6 % (11.7-14.2); RDW Standard Deviation 51.1 fL (35.1-46.3); Red Blood Cell Count 2.79 M/mm3 (3.80-5.20); White Blood Cell Count 12.25 K/mm3 (4.00-11.30)
[2021-12-09 13:59] LABS: Albumin, Blood 2.2 g/dL (3.4-5.0); Albumin/Globulin Ratio 0.8 (0.8-1.8); Bilirubin, Total 0.6 mg/dL (0.1-1.0); Calcium, Blood 8.3 mg/dL (8.5-10.1); Creatinine, Blood 0.55 mg/dL (0.40-1.00); Globulin, Blood 2.8 g/dL (2.2-4.0); Magnesium, Blood 1.8 mg/dL (1.6-2.4); Potassium, Blood 4.2 mmol/L (3.5-5.5)
[2021-12-10 05:08] LABS: BASOPHILS ABSOLUTE AUTO 0.03 K/mm3 (0.00-0.23); BASOPHILS PERCENT AUTO 0 % (0-2); EOSINOPHILS ABSOLUTE AUTO 0.07 K/mm3 (0.00-0.68); EOSINOPHILS PERCENT AUTO 1 % (0-6); Hematocrit 25.8 % (33.0-51.0); Hemoglobin 8.1 g/dL (11.5-16.0); IMMATURE GRAN PERCENT AUTO 1 % (0-1); LYMPHOCYTES ABSOLUTE AUTO 1.61 K/mm3 (0.84-5.20); LYMPHOCYTES PERCENT AUTO 18 % (21-46); MONOCYTES ABSOLUTE AUTO 0.68 K/mm3 (0.16-1.47); MONOCYTES PERCENT AUTO 7 % (4-13); Mean Corpuscular HGB 27.8 pg (26.0-34.0); Mean Corpuscular HGB Conc 31.4 g/dL (31.5-36.5); Mean Corpuscular Volume 89 fL (80-100); Mean Platelet Volume 10.7 fL (9.1-12.4); NEUTROPHILS ABSOLUTE AUTO 6.72 K/mm3 (1.96-9.15); NEUTROPHILS PERCENT AUTO 73 % (41-73); Platelet Count 244 K/mm3 (150-400); RDW Coefficient Variation 16.4 % (11.7-14.2); RDW Standard Deviation 53.5 fL (35.1-46.3); Red Blood Cell Count 2.91 M/mm3 (3.80-5.20); White Blood Cell Count 9.21 K/mm3 (4.00-11.30)
[2021-12-10 10:37] LABS: BASOPHILS ABSOLUTE AUTO 0.02 K/mm3 (0.00-0.23); BASOPHILS PERCENT AUTO 0 % (0-2); EOSINOPHILS ABSOLUTE AUTO 0.08 K/mm3 (0.00-0.68); EOSINOPHILS PERCENT AUTO 1 % (0-6); Hematocrit 26.2 % (33.0-51.0); Hemoglobin 8.4 g/dL (11.5-16.0); IMMATURE GRAN ABSOLUTE AUTO 0.11 K/mm3 (0.00-0.10); IMMATURE GRAN PERCENT AUTO 1 % (0-1); LYMPHOCYTES ABSOLUTE AUTO 1.58 K/mm3 (0.84-5.20); LYMPHOCYTES PERCENT AUTO 17 % (21-46); MONOCYTES ABSOLUTE AUTO 0.55 K/mm3 (0.16-1.47); MONOCYTES PERCENT AUTO 6 % (4-13); Mean Corpuscular HGB 28.1 pg (26.0-34.0); Mean Corpuscular HGB Conc 32.1 g/dL (31.5-36.5); Mean Corpuscular Volume 88 fL (80-100); Mean Platelet Volume 10.6 fL (9.1-12.4); NEUTROPHILS ABSOLUTE AUTO 7.19 K/mm3 (1.96-9.15); NEUTROPHILS PERCENT AUTO 75 % (41-73); Platelet Count 251 K/mm3 (150-400); RDW Coefficient Variation 16.2 % (11.7-14.2); RDW Standard Deviation 52.4 fL (35.1-46.3); Red Blood Cell Count 2.99 M/mm3 (3.80-5.20); White Blood Cell Count 9.53 K/mm3 (4.00-11.30)
[2021-12-10 10:56] LABS: Albumin, Blood 2.1 g/dL (3.4-5.0); Albumin/Globulin Ratio 0.7 (0.8-1.8); Bilirubin, Total 0.6 mg/dL (0.1-1.0); Bun/Creatinine Ratio 12.8 (12.0-20.0); Calcium, Blood 8.2 mg/dL (8.5-10.1); Creatinine, Blood 0.55 mg/dL (0.40-1.00); Globulin, Blood 3.1 g/dL (2.2-4.0); Potassium, Blood 3.9 mmol/L (3.5-5.5); Total Protein, Blood 5.2 g/dL (6.4-8.2)
[2021-12-11] MEDS ORDERED: DOCU100 PO ×2 (11:09)
[2021-12-11] MEDS ORDERED: IBUP800 PO ×2 (11:09→11:10)
--- NOTE | 2021-12-11 14:46 | NUR ---
IGGY AND YULI GIVEN WRITTEN AND VERBAL DC INSTRUCTIONS IN LENGTH. INSTRUCTED TO SEE DR CASTRO WITHIN 1 WEEK AND TO FOLLOW UP WITH DR CHRISTINA PER DR FIGUEROA RECCOMENDATION. WILL CONTINUE TO TAKE POTASSIUM 40 MEQ BID. WILL CALL [facility] OFFICE SOONER IF PT HAVING ANY ISSUES OR PROBLEMS. WILL FOLLOW UP BACK HERE AT [facility] MONDAY AT 1300. YULI WAS ABLE TO TECHNOLOGY COORDINATOR KINDRA MEDICATIONS FOR HOME AND IGGY WAS DC/D HOME WITH AND . ALL QUESTIONS ANSWERED.
== END 2021-12-11 14:10 | disposition home or self-care (01) | DRG 785 ==
LOC: BC 05:00
PROVIDERS: ADMIT Obstetrics & Gynecology
PROC: 10D00Z1 Extraction of Products of Conception, Low, Open Approach (ICD-10-PCS; principal; 2021-12-09 07:30)
PROC: 0UB70ZZ Excision of Bilateral Fallopian Tubes, Open Approach (ICD-10-PCS; 2021-12-09 07:30)
DX: O34.211 Maternal care for low transverse scar from previous cesarean delivery (principal); Z3A.39 39 weeks gestation of pregnancy; Z37.0 Single live birth; O99.02 Anemia complicating childbirth; D64.9 Anemia, unspecified
CPT/HCPCS: 36415; 36430; 80053; 83735; 85025; 86850; 86900; 86901; 86923; 88302; A9270; J0694; J1885; J2370; J2405; J2704; J2765; J3010; J3480; J7030; J7050; J7120; P9016

== ENCOUNTER → 2024-03-25 | Outpatient (CLI) | payer OTHER ==
[~2024-03-25] MED LIST changes: +DOCU100 PO; +PROMETHAZINE12.5 M1 PO; +PYRI100 PO; +SERT25 PO
[2024-03-25 11:46] LABS: BASOPHILS ABSOLUTE AUTO 0.04 K/mm3 (0.00-0.23); BASOPHILS PERCENT AUTO 1 % (0-2); EOSINOPHILS ABSOLUTE AUTO 0.07 K/mm3 (0.00-0.68); EOSINOPHILS PERCENT AUTO 1 % (0-6); Hematocrit 41.4 % (33.0-51.0); Hemoglobin 14.1 g/dL (11.5-16.0); IMMATURE GRAN ABSOLUTE AUTO 0.02 K/mm3 (0.00-0.10); IMMATURE GRAN PERCENT AUTO 0 % (0-1); LYMPHOCYTES PERCENT AUTO 16 % (21-46); MONOCYTES ABSOLUTE AUTO 0.42 K/mm3 (0.16-1.47); MONOCYTES PERCENT AUTO 7 % (4-13); Mean Corpuscular HGB 30.1 pg (26.0-34.0); Mean Corpuscular HGB Conc 34.1 g/dL (31.5-36.5); Mean Corpuscular Volume 88 fL (80-100); Mean Platelet Volume 11.3 fL (9.1-12.4); NEUTROPHILS ABSOLUTE AUTO 4.79 K/mm3 (1.96-9.15); NEUTROPHILS PERCENT AUTO 76 % (41-73); Platelet Count 272 K/mm3 (150-400); RDW Coefficient Variation 13.1 % (11.7-14.2); RDW Standard Deviation 42.2 fL (35.1-46.3); Red Blood Cell Count 4.69 M/mm3 (3.80-5.20); White Blood Cell Count 6.34 K/mm3 (4.00-11.30)
[2024-03-25 12:15] LABS: Alanine Aminotransfer (ALT/SGP 20 U/L (12-78); Albumin, Blood 3.7 g/dL (3.4-5.0); Albumin/Globulin Ratio 1.1 (0.8-1.8); Alk Phos 78 U/L (50-136); Anion Gap 10 mmol/L (3-11); Aspartate Aminotrans (AST/SGOT 14 U/L (12-37); Blood Urea Nitrogen 8 mg/dL (8-24); CHOL/HDL RATIO 3.9; CO2, Blood 24 mmol/L (21-32); Calcium, Blood 9.2 mg/dL (8.5-10.1); Chloride, Blood 111 mmol/L (98-108); Cholesterol 212 mg/dL (50-200); Creatinine, Blood 0.73 mg/dL (0.40-1.00); Globulin, Blood 3.5 g/dL (2.2-4.0); Glomerular Filtration Rate 111 (60-); Glucose, Blood 102 mg/dL (70-99); HDL Cholesterol 54 mg/dL (>39); LDL/HDL RATIO 2.6; Low Density Lipoprotein Chol 142 mg/dL (0-110); Potassium, Blood 3.7 mmol/L (3.5-5.5); Sodium, Blood 141 mmol/L (136-145); Total Protein, Blood 7.2 g/dL (6.4-8.2); Triglycerides 79 mg/dL (30-140); Very Low Density Lipoprot Chol 15 mg/dL (6-28)
== END | disposition home or self-care (01) ==
LOC: LAB 11:07 → LAB SHORT 11:07
PROVIDERS: Family Medicine
DX: Z00.01 Encounter for general adult medical examination with abnormal findings (principal); I10 Essential (primary) hypertension
CPT/HCPCS: 80053; 80061; 84443; 85025